=== PATIENT | male | born 1965 | race African-American/Black ===

== ENCOUNTER 2017-12-03 14:56 | Inpatient (IN) | payer OTHER ==
[2017-12-03 15:30] VITALS: BMI 29.2
--- NOTE | 2017-12-03 18:41 | HP ---
CIWA Score - CIWA Score Nausea/Vomitin-Mild Nausea/No Vomiting Muscle Tremors: 3 Anxiety: 3 Agitation: 3 Paroxysmal Sweats: 3 Orientation: 0-Oriented Tacttile Disturbances: 1-Very Mild Itch/Numbness Auditory Disturbances: 0-None Visual Disturbances: 0-None Headache: 1-Very Mild CIWA-Ar Total Score: 15 Admission ROS S - HPI Chief Complaint: "I want detox from alcohol" Allergies/Adverse Reactions: Allergies Allergy/AdvReac Type Severity Reaction Status Date / Time lamotrigine [From Lamictal] Allergy Severe Jones-Truong Verified 12/03/17 18: 02 syndrome sulfamethoxazole Allergy Severe Jones-Truong Verified 12/03/17 18:02 [From Bactrim] syndrome trimethoprim [From Bactrim] Allergy Severe Jones-Truong Verified 12/03/17 18: 02 syndrome History of Present Illness: 52 y/o male with a long hx of alcohol addiction presents today requesting detox. Pt had been in previous detox with his last visit here in 2015. Pt states he was kicked out of the suboxone program at [facility] 2 weeks ago.He said he hopes to go back after detox as had been using opiates since he got kicked out of the program. Hx of HTN, acid reflux and enlarged prostate. Psych hx of schizoaffective, depression. Denies SI at current time. Exam Limitations: No Limitations - Ebola screening Have you traveled outside of the country in the last 21 days: No (N) Have you had contact with anyone from an Ebola affected area: No Have you been sick,other than usual withdrawal symptoms: No Do you have a fever: No - Review of Systems Constitutional: Unintentional Wgt. Loss EENT: reports: Other (wears reading glasses, missing lower b/l inciscors, no dentures) Respiratory: reports: No Symptoms reported Cardiac: reports: No Symptoms Reported GI: reports: Diarrhea : reports: No Symptoms Reported Musculoskeletal: reports: Back Pain Integumentary: reports: No Symptoms Reported Neuro: reports: Headache, Tingling (to fingertips) Endocrine: reports: Increased Thirst Hematology: reports: Anemia Psychiatric: reports: Orientated x3 Other Systems: Reviewed and Negative Patient History - Patient Medical History Hx Anemia: Yes Hx Asthma: No Hx Chronic Obstructive Pulmonary Disease (COPD): No Hx Cancer: No Hx Cardiac Disorders: Yes (arrythmia) Hx Congestive Heart Failure: No Hx Hypertension: Yes (On Lisisnopril, HCTZ - not compliant) Hx Hypercholesterolemia: No Hx Pacemaker: No HX Cerebrovascular Accident: No Hx Seizures: No Hx Dementia: No Hx Diabetes: No Hx Gastrointestinal Disorders: Yes (acid reflux) Hx Liver Disease: No Hx Genitourinary Disorders: No Hx Sexually Transmitted Disorders: No Hx Renal Disease (ESRD): No Hx Thyroid Disease: No Hx Human Immunodeficiency Virus (HIV): No (negative) Hx Hepatitis C: No Hx Depression: Yes (On abilify) Hx Suicide Attempt: Yes (In 2002 pill overdose due to family ;denies any S/ H ideation) Hx Bipolar Disorder: No Hx Schizophrenia: Yes (diagnosed four years ago, [facility]) - Patient Surgical History Past Surgical History: No Hx Neurologic Surgery: No Hx Cataract Extraction: No Hx Cardiac Surgery: No Hx Lung Surgery: No Hx Breast Surgery: No Hx Breast Biopsy: No Hx Abdominal Surgery: No Hx Appendectomy: No Hx Cholecystectomy: No Hx Genitourinary Surgery: No Hx Section: No Hx Orthopedic Surgery: No Other Surgical History: Tx for leeanne rhoades in 2013, reactive allergy with sloching off of esop Anesthesia Reaction: No - PPD History Previous Implant?: Yes Documented Results: Negative w/proof Implanted On Prior R Admission?: Yes Date: 07/17/15 Results: 0 mm PPD to be Administered?: Yes - Reproductive History Patient is a Female of Child Bearing Age (11 -55 yrs old): No - Smoking Cessation Smoking history: Current every day smoker Have you smoked in the past 12 months: Yes Aproximately how many cigarettes per day: 5 Cigars Per Day: 0 Hx Chewing Tobacco Use: No Initiated information on smoking cessation: Yes 'Breaking Loose' booklet given: 12/03/17 - Substance & Tx. History Hx Alcohol Use: Yes Hx Substance Use: Yes (crack cocaine) Substance Use Type: Alcohol Hx Substance Use Treatment: Yes - Substances Abused Alcohol Route: Oral Frequency: Daily Amount used: Vodka 2 pints, Beer 3 of 16 oz Age of first use: 12 Date of Last Use: 12/03/17 Cocaine Route: Smoking Frequency: Daily Amount used: $25 (3 bags) Age of first use: 27 Date of Last Use: 12/03/17 Family Disease History - Family Disease History Family Disease History: Other: Father (alc. dep), Mother (HTN, alc dep), Brother (mental illness and substance) Admission Physical Exam [facility] - Vital Signs Vital Signs: Vital Signs - 24 hr 12/03/17 15:29 Temperature 98.3 F Pulse Rate 74 Respiratory 20 Rate Blood Pressure 144/81 - Physical General Appearance: Yes: Mild Distress, Anxious HEENTM: Yes: Within Normal Limits Respiratory: Yes: Chest Non-Tender, Lungs Clear, Normal Breath Sounds, No Respiratory Distress Neck: Yes: Within Normal Limits, Trachea in good position Breast: Yes: Breast Exam Deferred Cardiology: Yes: Regular Rate, S1, S2 Abdominal: Yes: Non Tender, Distended Genitourinary: Yes: Within Normal Limits Back: Yes: Normal Inspection Musculoskeletal: Yes: Within Normal Limits Extremities: Yes: Normal Capillary Refill Neurological: Yes: Fully Oriented, Motor Strength 5/5 Integumentary: Yes: Other (small raised bumps - clogged up oil glands) Lymphatic: Yes: Within Normal Limits - Diagnostic (1) Alcohol dependence with uncomplicated withdrawal Current Visit: No Status: Chronic (2) Nicotine dependence Current Visit: No Status: Chronic Qualifiers: Nicotine product type: cigarettes Substance use status: uncomplicated Qualified Code(s): F17.210 - Nicotine dependence, cigarettes, uncomplicated (3) BPH (benign prostatic hypertrophy) Current Visit: No Status: Chronic (4) GERD (gastroesophageal reflux disease) Current Visit: No Status: Chronic Qualifiers: Esophagitis presence: without esophagitis Qualified Code(s): K21.9 - Gastro -esophageal reflux disease without esophagitis (5) HTN (hypertension) Current Visit: No Status: Chronic Qualifiers: Hypertension type: essential hypertension Qualified Code(s): I10 - Essential (primary) hypertension (6) Schizoaffective disorder Current Visit: No Status: Acute (7) Cocaine dependence Current Visit: Yes Status: Acute Cleared for Admission S - Detox or Rehab [facility] Level of Care: Medically Managed Detox Regimen/Protocol: Librium [facility] Breath Alcohol Content Breath Alcohol Content: 0 Urine Drug Screen - Results Drug Screen Negative: No Urine Drug Screen Results: GENNA-Cocaine
[2017-12-03] MEDS ORDERED: MAGNESIUM HYDROX 2400MG/30ML ORAL SUSPENSION 30 ML CUP PO PRN (19:05)
[2017-12-03] MEDS ORDERED: MENTHOL/PHENOL 1 EACH UD MM PRN (19:05)
[2017-12-03] MEDS ORDERED: MAG HYDROX/AL HYDROX/SIMETH 30 ML UNIT-DOSE CUP PO PRN (19:05)
[2017-12-03] MEDS ORDERED: IBUPROFEN 400 MG TABLET (FP) PO PRN (19:05)
[2017-12-03] MEDS ORDERED: MAGNESIUM CITRATE 300 ML BOTTLE PO PRN (19:05)
[2017-12-03] MEDS ORDERED: NICOTINE POLACRILEX 2 MG GUM BC PRN (19:05)
[2017-12-03] MEDS ORDERED: P-EPHED 60MG/TRIPROLIDI 2.5MG TABLET PO PRN (19:05)
[2017-12-03] MEDS ORDERED: LOPERAMIDE HCL 2 MG CAPSULE PO PRN (19:05)
[2017-12-03] MEDS ORDERED: hydrOXYzine PAMOATE 50 MG CAPSULE (FP) PO PRN (19:05)
[2017-12-03] MEDS ORDERED: ACETAMINOPHEN 325 MG TABLET (FP) PO PRN (19:05)
[2017-12-03] MEDS ORDERED: guaiFENesin/D-METHORPHAN HB 10 ML UNIT-DOSE CUPS PO PRN (19:05)
[2017-12-03] MEDS ORDERED: chlordiazePOXIDE HCL 25 MG CAPSULE PO PRN (20:20)
[2017-12-03] MEDS: THIAMINE HCL 100 MG TABLET (FP) PO SCH (22:34)
[2017-12-03] MEDS: chlordiazePOXIDE HCL 25 MG CAPSULE PO SCH (22:34)
[2017-12-03] MEDS: MELATONIN 5 MG TABLETS PO PRN (22:34)
[2017-12-04 00:39] LABS: URINE APPEARANCE CLEAR; URINE BILIRUBIN NEGATIVE (<2.0 mg/dL); URINE BLOOD NEGATIVE (NEGATIVE); URINE COLOR YELLOW; URINE GLUCOSE (UA) NEGATIVE (NEGATIVE); URINE KETONE NEGATIVE (NEGATIVE); URINE LEUK ESTERASE NEGATIVE (NEGATIVE); URINE NITRITE NEGATIVE (NEGATIVE); URINE PROTEIN NEGATIVE (NEGATIVE); URINE UROBILINOGEN NEGATIVE mg/dL (0.2-1.0)
[2017-12-04] MEDS: chlordiazePOXIDE HCL 25 MG CAPSULE PO SCH ×4 (05:41→22:53)
--- NOTE | 2017-12-04 09:07 | EKG ---
Test Reason : Blood Pressure : / mmHG Vent. Rate : 064 BPM Atrial Rate : 064 BPM P-R Int : 154 ms QRS Dur : 098 ms QT Int : 464 ms P-R-T Axes : 030 -10 003 degrees QTc Int : 478 ms NORMAL SINUS RHYTHM MODERATE VOLTAGE CRITERIA FOR LVH, MAY BE NORMAL VARIANT NONSPECIFIC ST AND T WAVE ABNORMALITY PROLONGED QT ABNORMAL ECG WHEN COMPARED WITH ECG OF 28-FEB-2016 07:43, NON-SPECIFIC CHANGE IN ST SEGMENT IN ANTERIOR LEADS T WAVE INVERSION NO LONGER EVIDENT IN ANTERIOR LEADS Confirmed by SUZE CORNEJO MD ([id number]) on 12/04/2017 9:06:34 AM Referred By: Confirmed By:SUZE CORNEJO MD
[2017-12-04] MEDS ORDERED: MIRTAZAPINE 30 MG TABLET (FP) PO SCH (10:00)
--- NOTE | 2017-12-04 10:03 | CONSULT ---
[facility] Psychiatric Consult - Data Date of interview: 12/04/17 Admission source: [facility] Identifying data: This is 52 years old obese male with psychiatric hospitalization history, history of Sckozoaffective disorder, single father of six with history of dependence with Cocaine, Alcohol and Nicotine, is here for detox from above drugs. Substance Abuse History: Smoking history: Current every day smoker. Have you smoked in the past 12 months: Yes. Aproximately how many cigarettes per day: 5. Cigars Per Day: 0. Hx Chewing Tobacco Use: No. Initiated information on smoking cessation: Yes. 'Breaking Loose' booklet given: 12/03/17. - Substance & Tx. History. Hx Alcohol Use: Yes. Hx Substance Use: Yes (crack cocaine). Substance Use Type: Alcohol. Hx Substance Use Treatment: Yes. - Substances Abused. Alcohol. Route: Oral. Frequency: Daily. Amount used: Vodka 2 pints, Beer 3 of 16 oz. Age of first use: 12. Date of Last Use: 12/03/17. Cocaine. Route: Smoking. Frequency: Daily. Amount used: $25 (3 bags). Age of first use: 27. Date of Last Use: 12/03/17 Medical History: GERD, BPH, HTN Psychiatric History: Patient reeports history of Schizoaffective disorder with most recent psychiatric admission at [facility] on about 3 weeks ago fro safety, reports taking prior to adfmiossion: Abilify 5mgn poqd. Remeron 30mg pom qhs. Denies suicdial,homicadal history Physical/Sexual Abuse/Trauma History: Denies Additional Comment: Abilify 5mgn poqd. Remeron 30mg pom qhs Mental Status Exam - Mental Status Exam Alert and Oriented to: Person Cognitive Function: Fair Patient Appearance: Unkempt Mood: Expansive Affect: Flat Patient Behavior: Sedated Speech Pattern: Delayed Voice Loudness: Mildly Soft/Quiet Thought Disorder: Being Controlled Hallucinations: Denies Suicidal Ideation: Denies Homicidal Ideation: Denies Insight/Judgement: Fair Sleep: Difficulty falling asleep Muscle strength/Tone: Mild Hypotonicity Gait/Station: Shuffling Additional Comments: Abilify 5mgn poqd. Remeron 30mg pom qhs Psychiatric Findings - Problem List ([place] 1, 2,3) (1) Cocaine dependence Current Visit: Yes Status: Acute (2) Alcohol abuse counseling and surveillance Current Visit: No Status: Acute (3) Drug-induced mood disorder Current Visit: No Status: Acute (4) Schizoaffective disorder Current Visit: No Status: Acute (5) Alcohol dependence with uncomplicated withdrawal Current Visit: No Status: Chronic (6) Obesity Current Visit: No Status: Chronic Qualifiers: Obesity type: unspecified obesity type Qualified Code(s): E66.01 - Morbid ( severe) obesity due to excess calories - Initial Treatment Plan Initial Treatment Plan: Abilify 5mgn poqd. Remeron 30mg pom qhs
[2017-12-04] MEDS: PRENATAL VITAMINS W/ FOLIC ACID TABLET (FP) PO SCH (10:16)
[2017-12-04] MEDS: HYDROCHLOROTHIAZIDE 25 MG TABLET (FP) PO SCH (10:16)
[2017-12-04] MEDS: LISINOPRIL 10 MG TABLET (FP) PO SCH (10:16)
[2017-12-04 10:17] LABS: HEMOGLOBIN 12.9 GM/dL (11.7-16.9); MCH 26.8 pg (25.7-33.7); MEAN CELL VOLUME 81.2 fl (80-96); MEAN PLT VOLUME 8.7 fl (7.5-11.1); PLATELET COUNT 246 K/MM3 (134-434); RDW 14.2 % (11.9-15.9); WHITE BLOOD COUNT 4.2 K/mm3 (4.0-10.0)
[2017-12-04] MEDS: ARIPiprazole 5 MG TABLET (FP) PO SCH (10:17)
[2017-12-04 10:33] LABS: ALBUMIN 2.8 g/dl (3.4-5.0); ANION GAP 6 (8-16); BILIRUBIN,TOTAL 0.1 mg/dL (0.2-1.0); BLOOD UREA NITROGEN 13 mg/dL (7-18); CALCIUM 8.2 mg/dL (8.5-10.1); CHLORIDE 107 mmol/L (98-107); CO2 29 mmol/L (21-32); CREATININE 0.9 mg/dL (0.7-1.3); GLUCOSE,RANDOM 86 mg/dL (74-106); POTASSIUM 3.6 mmol/L (3.5-5.1); SGOT/AST 22 U/L (15-37); SGPT/ALT 18 U/L (12-78); SODIUM 142 mmol/L (136-145); TOT PROT 6.1 g/dl (6.4-8.2)
[2017-12-04 10:34] LABS: ALK PHOS 54 U/L (45-117)
--- NOTE | 2017-12-04 11:50 | PN ---
S CIWA - CIWA Score Nausea/Vomitin Muscle Tremors: 3 Anxiety: 3 Agitation: 3 Paroxysmal Sweats: 1-Minimal Palms Moist Orientation: 0-Oriented Tacttile Disturbances: 1-Very Mild Itch/Numbness Auditory Disturbances: 1-Very Mild Visual Disturbances: 0-None Headache: 2-Mild CIWA-Ar Total Score: 17 BHS Progress Note (SOAP) Subjective: ALERT,IRRITABLE,ANXIOUS,INTERRUPTED SLEEP,TREMOR,PAIN IN THE BODY Objective: 12/04/17 11:48 Vital Signs Temperature 97.7 F 12/04/17 09:49 Pulse Rate 64 12/04/17 09:49 Respiratory Rate 18 12/04/17 09:49 Blood Pressure 151/87 12/04/17 09:49 O2 Sat by Pulse Oximetry (%) EKG NSR,LVH NO CHEST PAIN,NO SOB,NO DIZZINESS Laboratory Last Values WBC 4.2 K/mm3 (4.0-10.0) D 12/04/17 07:00 RBC 4.80 M/mm3 (4.00-5.60) 12/04/17 07:00 Hgb 12.9 GM/dL (11.7-16.9) D 12/04/17 07:00 Hct 39.0 % (35.4-49) D 12/04/17 07:00 MCV 81.2 fl (80-96) 12/04/17 07:00 MCH 26.8 pg (25.7-33.7) D 12/04/17 07:00 MCHC 33.0 g/dl (32.0-35.9) 12/04/17 07:00 RDW 14.2 % (11.9-15.9) D 12/04/17 07:00 Plt Count 246 K/MM3 (134-434) 12/04/17 07:00 MPV 8.7 fl (7.5-11.1) 12/04/17 07:00 Sodium 142 mmol/L (136-145) 12/04/17 07:00 Potassium 3.6 mmol/L (3.5-5.1) 12/04/17 07:00 Chloride 107 mmol/L (98-107) 12/04/17 07:00 Carbon Dioxide 29 mmol/L (21-32) 12/04/17 07:00 Anion Gap 6 (8-16) L 12/04/17 07:00 BUN 13 mg/dL (7-18) 12/04/17 07:00 Creatinine 0.9 mg/dL (0.7-1.3) D 12/04/17 07:00 Creat Clearance w eGFR > 60 (>60) 12/04/17 07:00 Random Glucose 86 mg/dL (74-106) D 12/04/17 07:00 Calcium 8.2 mg/dL (8.5-10.1) L 12/04/17 07:00 Total Bilirubin 0.1 mg/dL (0.2-1.0) L D 12/04/17 07:00 AST 22 U/L (15-37) D 12/04/17 07:00 ALT 18 U/L (12-78) D 12/04/17 07:00 Alkaline Phosphatase 54 U/L (45-117) 12/04/17 07:00 Total Protein 6.1 g/dl (6.4-8.2) L 12/04/17 07:00 Albumin 2.8 g/dl (3.4-5.0) L 12/04/17 07:00 Urine Color Yellow 12/03/17 22:55 Urine Appearance Clear 12/03/17 22:55 Urine pH 5.0 (5.0-8.0) 12/03/17 22:55 Ur Specific [place] 1.027 (1.001-1.035) 12/03/17 22:55 Urine Protein Negative (NEGATIVE) 12/03/17 22:55 Urine Glucose (UA) Negative (NEGATIVE) 12/03/17 22:55 Urine Ketones Negative (NEGATIVE) 12/03/17 22:55 Urine Blood Negative (NEGATIVE) 12/03/17 22:55 Urine Nitrite Negative (NEGATIVE) 12/03/17 22:55 Urine Bilirubin Negative (<2.0 mg/dL) 12/03/17 22:55 Urine Urobilinogen Negative mg/dL (0.2-1.0) 12/03/17 22:55 Ur Leukocyte Esterase Negative (NEGATIVE) 12/03/17 22:55 12/04/17 11:50 RPR PENDING Assessment: 12/04/17 11:50 WITHDRAWAL SYMPTOM Plan: CONTINUE DETOX
[2017-12-04] MEDS: THIAMINE HCL 100 MG TABLET (FP) PO SCH (22:52)
[2017-12-04] MEDS: MIRTAZAPINE 30 MG TABLET (FP) PO SCH (22:52)
[2017-12-05] MEDS: chlordiazePOXIDE HCL 25 MG CAPSULE PO SCH ×3 (05:38→18:50)
[2017-12-05] MEDS: LISINOPRIL 10 MG TABLET (FP) PO SCH (10:48)
[2017-12-05] MEDS: HYDROCHLOROTHIAZIDE 25 MG TABLET (FP) PO SCH (10:48)
[2017-12-05] MEDS: ARIPiprazole 5 MG TABLET (FP) PO SCH (10:48)
[2017-12-05] MEDS: PRENATAL VITAMINS W/ FOLIC ACID TABLET (FP) PO SCH (10:48)
--- NOTE | 2017-12-05 11:51 | PN ---
S CIWA - CIWA Score Nausea/Vomitin Muscle Tremors: 3 Anxiety: 3 Agitation: 3 Paroxysmal Sweats: 2 Orientation: 0-Oriented Tacttile Disturbances: 1-Very Mild Itch/Numbness Auditory Disturbances: 1-Very Mild Visual Disturbances: 0-None Headache: 2-Mild CIWA-Ar Total Score: 18 S Progress Note (SOAP) Subjective: ALERT,IRRITABLE,ANXIOUS,INTERRUPTED SLEEP,TREMOR Objective: 12/05/17 11:48 Vital Signs Temperature 96.9 F L 12/05/17 10:00 Pulse Rate 63 12/05/17 10:00 Respiratory Rate 20 12/05/17 10:00 Blood Pressure 147/81 12/05/17 10:00 O2 Sat by Pulse Oximetry (%) 12/05/17 11:49 WITHDRAWAL SYMPTOM Laboratory Last Values WBC 4.2 K/mm3 (4.0-10.0) D 12/04/17 07:00 RBC 4.80 M/mm3 (4.00-5.60) 12/04/17 07:00 Hgb 12.9 GM/dL (11.7-16.9) D 12/04/17 07:00 Hct 39.0 % (35.4-49) D 12/04/17 07:00 MCV 81.2 fl (80-96) 12/04/17 07:00 MCH 26.8 pg (25.7-33.7) D 12/04/17 07:00 MCHC 33.0 g/dl (32.0-35.9) 12/04/17 07:00 RDW 14.2 % (11.9-15.9) D 12/04/17 07:00 Plt Count 246 K/MM3 (134-434) 12/04/17 07:00 MPV 8.7 fl (7.5-11.1) 12/04/17 07:00 Sodium 142 mmol/L (136-145) 12/04/17 07:00 Potassium 3.6 mmol/L (3.5-5.1) 12/04/17 07:00 Chloride 107 mmol/L (98-107) 12/04/17 07:00 Carbon Dioxide 29 mmol/L (21-32) 12/04/17 07:00 Anion Gap 6 (8-16) L 12/04/17 07:00 BUN 13 mg/dL (7-18) 12/04/17 07:00 Creatinine 0.9 mg/dL (0.7-1.3) D 12/04/17 07:00 Creat Clearance w eGFR > 60 (>60) 12/04/17 07:00 Random Glucose 86 mg/dL (74-106) D 12/04/17 07:00 Calcium 8.2 mg/dL (8.5-10.1) L 12/04/17 07:00 Total Bilirubin 0.1 mg/dL (0.2-1.0) L D 12/04/17 07:00 AST 22 U/L (15-37) D 12/04/17 07:00 ALT 18 U/L (12-78) D 12/04/17 07:00 Alkaline Phosphatase 54 U/L (45-117) 12/04/17 07:00 Total Protein 6.1 g/dl (6.4-8.2) L 12/04/17 07:00 Albumin 2.8 g/dl (3.4-5.0) L 12/04/17 07:00 Urine Color Yellow 12/03/17 22:55 Urine Appearance Clear 12/03/17 22:55 Urine pH 5.0 (5.0-8.0) 12/03/17 22:55 Ur Specific [place] 1.027 (1.001-1.035) 12/03/17 22:55 Urine Protein Negative (NEGATIVE) 12/03/17 22:55 Urine Glucose (UA) Negative (NEGATIVE) 12/03/17 22:55 Urine Ketones Negative (NEGATIVE) 12/03/17 22:55 Urine Blood Negative (NEGATIVE) 12/03/17 22:55 Urine Nitrite Negative (NEGATIVE) 12/03/17 22:55 Urine Bilirubin Negative (<2.0 mg/dL) 12/03/17 22:55 Urine Urobilinogen Negative mg/dL (0.2-1.0) 12/03/17 22:55 Ur Leukocyte Esterase Negative (NEGATIVE) 12/03/17 22:55 RPR Titer Nonreactive (NONREACTIVE) 12/04/17 07:00 Assessment: 12/05/17 11:50 WITHDRAWAL SYMPTOM Plan: CONTINUE DETOX
[2017-12-05] MEDS: MIRTAZAPINE 30 MG TABLET (FP) PO SCH (22:14)
[2017-12-05] MEDS: chlordiazePOXIDE 5 MG CAPSULE PO SCH (22:14)
[2017-12-05] MEDS: THIAMINE HCL 100 MG TABLET (FP) PO SCH (22:14)
[2017-12-05] MEDS: MELATONIN 5 MG TABLETS PO PRN (22:15)
[2017-12-06] MEDS: chlordiazePOXIDE 5 MG CAPSULE PO SCH ×3 (06:47→18:20)
[2017-12-06] MEDS: ARIPiprazole 5 MG TABLET (FP) PO SCH (10:22)
[2017-12-06] MEDS: PRENATAL VITAMINS W/ FOLIC ACID TABLET (FP) PO SCH (10:22)
[2017-12-06] MEDS: HYDROCHLOROTHIAZIDE 25 MG TABLET (FP) PO SCH (10:22)
[2017-12-06] MEDS: LISINOPRIL 10 MG TABLET (FP) PO SCH (10:23)
--- NOTE | 2017-12-06 11:15 | PN ---
S Progress Note (SOAP) Subjective: ALERT,IRRITABLE,ANXIOUS,INTERRUPTED SLEEP Objective: 12/06/17 11:14 Vital Signs Temperature 96.4 F L 12/06/17 10:00 Pulse Rate 77 12/06/17 10:00 Respiratory Rate 16 12/06/17 10:00 Blood Pressure 137/83 12/06/17 10:00 O2 Sat by Pulse Oximetry (%) Assessment: 12/06/17 11:14 WITHDRAWAL SYMPTOM Plan: CONTINUE DETOX,DISCHARGE IN AM
[2017-12-06] MEDS ORDERED: PANTOPRAZOLE 40 MG TABLET (FP) PO SCH (11:30)
[2017-12-06] MEDS: MIRTAZAPINE 30 MG TABLET (FP) PO SCH (22:21)
[2017-12-06] MEDS: THIAMINE HCL 100 MG TABLET (FP) PO SCH (22:21)
[2017-12-06] MEDS: chlordiazePOXIDE HCL 10 MG CAPSULE PO SCH (22:21)
[2017-12-07] MEDS: chlordiazePOXIDE HCL 10 MG CAPSULE PO SCH (06:07)
[2017-12-07 06:20] VITALS: BP 138/70; PULSE 61; TEMP 98.1
--- NOTE | 2017-12-07 10:10 | PN ---
S Progress Note (SOAP) Subjective: ALERT,NO COMPLAINT Objective: 12/07/17 10:05 Vital Signs Temperature 98.1 F 12/07/17 06:00 Pulse Rate 61 12/07/17 06:00 Respiratory Rate 18 12/07/17 06:00 Blood Pressure 138/70 12/07/17 06:00 O2 Sat by Pulse Oximetry (%) Assessment: 12/07/17 10:05 DETOX COMPLETED ,NO WITHDRAWAL SYMPTOM Plan: DISCHARGE TODAY,FOLLOW UP WITH AFTER CARE PROGRAM ARRANGEMENT
--- NOTE | 2017-12-07 10:15 | DS ---
[facility] Detox Discharge Summary Admission Date: 12/03/17 Discharge Date: 12/07/17 - History Present History: Alcohol Dependence, Cocaine Dependence Additional Comments: FOLLOW UP WITH AFTER CARE PROGRAM ARRANGEMENT Pertinent Past History: BPH GERD HYPERTENSION SCHIZO AFFECTIVE DISORDER - Physical Exam Results Vital Signs: Vital Signs Temperature 98.1 F 12/07/17 06:00 Pulse Rate 61 12/07/17 06:00 Respiratory Rate 18 12/07/17 06:00 Blood Pressure 138/70 12/07/17 06:00 O2 Sat by Pulse Oximetry (%) Pertinent Admission Physical Exam Findings: WITHDRAWAL SIGNS AND SYMPTOM Vital Signs Temperature 98.1 F 12/07/17 06:00 Pulse Rate 61 12/07/17 06:00 Respiratory Rate 18 12/07/17 06:00 Blood Pressure 138/70 12/07/17 06:00 O2 Sat by Pulse Oximetry (%) Laboratory Last Values WBC 4.2 K/mm3 (4.0-10.0) D 12/04/17 07:00 RBC 4.80 M/mm3 (4.00-5.60) 12/04/17 07:00 Hgb 12.9 GM/dL (11.7-16.9) D 12/04/17 07:00 Hct 39.0 % (35.4-49) D 12/04/17 07:00 MCV 81.2 fl (80-96) 12/04/17 07:00 MCH 26.8 pg (25.7-33.7) D 12/04/17 07:00 MCHC 33.0 g/dl (32.0-35.9) 12/04/17 07:00 RDW 14.2 % (11.9-15.9) D 12/04/17 07:00 Plt Count 246 K/MM3 (134-434) 12/04/17 07:00 MPV 8.7 fl (7.5-11.1) 12/04/17 07:00 Sodium 142 mmol/L (136-145) 12/04/17 07:00 Potassium 3.6 mmol/L (3.5-5.1) 12/04/17 07:00 Chloride 107 mmol/L (98-107) 12/04/17 07:00 Carbon Dioxide 29 mmol/L (21-32) 12/04/17 07:00 Anion Gap 6 (8-16) L 12/04/17 07:00 BUN 13 mg/dL (7-18) 12/04/17 07:00 Creatinine 0.9 mg/dL (0.7-1.3) D 12/04/17 07:00 Creat Clearance w eGFR > 60 (>60) 12/04/17 07:00 Random Glucose 86 mg/dL (74-106) D 12/04/17 07:00 Calcium 8.2 mg/dL (8.5-10.1) L 12/04/17 07:00 Total Bilirubin 0.1 mg/dL (0.2-1.0) L D 12/04/17 07:00 AST 22 U/L (15-37) D 12/04/17 07:00 ALT 18 U/L (12-78) D 12/04/17 07:00 Alkaline Phosphatase 54 U/L (45-117) 12/04/17 07:00 Total Protein 6.1 g/dl (6.4-8.2) L 12/04/17 07:00 Albumin 2.8 g/dl (3.4-5.0) L 12/04/17 07:00 Urine Color Yellow 12/03/17 22:55 Urine Appearance Clear 12/03/17 22:55 Urine pH 5.0 (5.0-8.0) 12/03/17 22:55 Ur Specific [place] 1.027 (1.001-1.035) 12/03/17 22:55 Urine Protein Negative (NEGATIVE) 12/03/17 22:55 Urine Glucose (UA) Negative (NEGATIVE) 12/03/17 22:55 Urine Ketones Negative (NEGATIVE) 12/03/17 22:55 Urine Blood Negative (NEGATIVE) 12/03/17 22:55 Urine Nitrite Negative (NEGATIVE) 12/03/17 22:55 Urine Bilirubin Negative (<2.0 mg/dL) 12/03/17 22:55 Urine Urobilinogen Negative mg/dL (0.2-1.0) 12/03/17 22:55 Ur Leukocyte Esterase Negative (NEGATIVE) 12/03/17 22:55 RPR Titer Nonreactive (NONREACTIVE) 12/04/17 07:00 - Treatment Hospital Course: Detox Protocol Followed, Detoxed Safely, Responded well, Discharged Condition Good Patient has Accepted a Rehab Referral to: DECLINED - Medication Discharge Medications: Ambulatory Orders Esomeprazole Mag Trihydrate [Nexium] 40 mg PO DAILY #30 capsule.ec 07/15/14 Aripiprazole [Abilify] 5 mg PO DAILY #30 tablet 12/04/17 Mirtazapine [Remeron -] 30 mg PO DAILY #30 tablet 12/04/17 Doxazosin Mesylate [Cardura -] 1 mg PO HS #30 tablet 12/06/17 Hydrochlorothiazide 25 mg PO DAILY #30 tablet 12/06/17 Lisinopril 10 mg PO DAILY #30 tablet 12/06/17 Pantoprazole Sodium [Protonix -] 40 mg PO DAILY #30 tablet.ec 12/06/17 - Diagnosis (1) Alcohol dependence with uncomplicated withdrawal Status: Chronic (2) Cocaine dependence Status: Acute (3) Schizoaffective disorder Status: Acute (4) BPH (benign prostatic hypertrophy) Status: Chronic (5) GERD (gastroesophageal reflux disease) Status: Chronic Qualifiers: Esophagitis presence: without esophagitis Qualified Code(s): K21.9 - Gastro -esophageal reflux disease without esophagitis (6) HTN (hypertension) Status: Chronic Qualifiers: Hypertension type: essential hypertension Qualified Code(s): I10 - Essential (primary) hypertension (7) Nicotine dependence Status: Chronic Qualifiers: Nicotine product type: cigarettes Substance use status: uncomplicated Qualified Code(s): F17.210 - Nicotine dependence, cigarettes, uncomplicated - AMA Did Patient Leave Against Medical Advice: No
== END 2017-12-07 09:25 | disposition home or self-care (01) | DRG 774 ==
LOC: YASAS 14:56 → Y6N 18:39
PROVIDERS: ADMIT Internal Medicine; ATTEND Internal Medicine
PROC: HZ2ZZZZ Detoxification Services for Substance Abuse Treatment (ICD-10-PCS; principal; 2017-12-03)
DX: F10.230 Alcohol dependence with withdrawal, uncomplicated (principal); F14.20 Cocaine dependence, uncomplicated; F17.210 Nicotine dependence, cigarettes, uncomplicated; F25.9 Schizoaffective disorder, unspecified; F19.24 Other psychoactive substance dependence with psychoactive substance-induced mood disorder; F32.9 Major depressive disorder, single episode, unspecified; E66.9 Obesity, unspecified; Z68.29 Body mass index [BMI] 29.0-29.9, adult; Z91.5 Personal history of self-harm
CPT/HCPCS: 36415; 80053; 81003; 85027; 86593; 93005; 93010

== ENCOUNTER 2017-12-31 11:09 | Inpatient (IN) | payer OTHER ==
[2017-12-31 13:15] VITALS: BMI 29.9
--- NOTE | 2017-12-31 15:46 | HP ---
COWS - Scale Resting Pulse: 0= [place] 80 or Below Sweatin= Chills/Flushing Restless Observation: 1= Difficult to Sit Still Pupil Size: 0= Normal to Room Light Bone or Joint Aches: 1= Mild Discomfort Runny Nose/ Eye Tearin= Nasal Congestion GI Upset > 30mins: 2= Nausea/Diarrhea Tremor Observation: 2= Slight Tremor Visible Yawning Observation: 1= 1-2x During Session Anxiety or Irritability: 2=Irritable/Anxious Goose Flesh Skin: 0=Smooth Skin COWS Score: 11 CIWA Score - CIWA Score Nausea/Vomitin-Mild Nausea/No Vomiting Muscle Tremors: 3 Anxiety: 3 Agitation: 3 Paroxysmal Sweats: 3 Orientation: 1-Uncertain about Date Tacttile Disturbances: 0-None Auditory Disturbances: 0-None Visual Disturbances: 0-None Headache: 0-None Present CIWA-Ar Total Score: 14 Admission ROS S - HPI Chief Complaint: "i want from detox" Allergies/Adverse Reactions: Allergies Allergy/AdvReac Type Severity Reaction Status Date / Time lamotrigine [From Lamictal] Allergy Severe Jones-Truong Verified 12/31/17 14: 37 syndrome sulfamethoxazole Allergy Severe Jones-Truong Verified 12/31/17 14:37 [From Bactrim] syndrome trimethoprim [From Bactrim] Allergy Severe Jones-Truong Verified 12/31/17 14: 37 syndrome History of Present Illness: 52 y/o male with a very long hx of drug use presents for detox from Heroin and alcohol. Pt was last here for detox last month and is known to this program. Endorses a 19 months sober period in 2014 s/p being in a nursing home program. Last used heroin and alcohol this morning. Was picked up from the [facility] here by [facility]. Hx of HTN/Acid reflux/Enlarged prostrate/depression and schizoaffective d/o. States he is complaint with his psych meds (abilify, Remeron) but not the medical meds. Denies current SI Exam Limitations: No Limitations - Ebola screening Have you traveled outside of the country in the last 21 days: No Have you had contact with anyone from an Ebola affected area: No Have you been sick,other than usual withdrawal symptoms: No Do you have a fever: No - Review of Systems Constitutional: No Symptoms Reported EENT: reports: Dental Problems (Missing teeth, does not wear dentures), Other ( Wears glasses for farsightedness) Respiratory: reports: No Symptoms reported Cardiac: reports: No Symptoms Reported GI: reports: Diarrhea, Nausea : reports: No Symptoms Reported Musculoskeletal: reports: Back Pain, Joint Pain (chronic elbow pain) Integumentary: reports: Other (clogged oil glands) Neuro: reports: No Symptoms reported Endocrine: reports: Other (sweating) Hematology: reports: Anemia Psychiatric: reports: Mood/Affect Appropiate, Orientated x3, Anxious Other Systems: Reviewed and Negative Patient History - Patient Medical History Hx Anemia: Yes (Not on meds) Hx Asthma: No Hx Chronic Obstructive Pulmonary Disease (COPD): No Hx Cancer: No Hx Cardiac Disorders: Yes (Arrythmia. denies any complaint @ this time.) Hx Congestive Heart Failure: No Hx Hypertension: Yes (On Lisinopril, HCTZ - not compliant) Hx Hypercholesterolemia: No Hx Pacemaker: No HX Cerebrovascular Accident: No Hx Seizures: No Hx Dementia: No Hx Diabetes: No Hx Gastrointestinal Disorders: Yes (acid reflux. On Nexium but not complaint) Hx Liver Disease: No Hx Genitourinary Disorders: No Hx Sexually Transmitted Disorders: No Hx Renal Disease (ESRD): No Hx Thyroid Disease: No Hx Human Immunodeficiency Virus (HIV): No (negative. Last tested in Oct) Hx Hepatitis C: No Hx Depression: Yes (On abilify) Hx Suicide Attempt: Yes (In 2002 pill overdose due to family ;denies current S/H ideation) Hx Bipolar Disorder: No Hx Schizophrenia: Yes (diagnosed four years ago, [facility]) - Patient Surgical History Past Surgical History: No Hx Neurologic Surgery: No Hx Cataract Extraction: No Hx Cardiac Surgery: No Hx Lung Surgery: No Hx Breast Surgery: No Hx Breast Biopsy: No Hx Abdominal Surgery: No Hx Appendectomy: No Hx Cholecystectomy: No Hx Genitourinary Surgery: No Hx Section: No Hx Orthopedic Surgery: No Other Surgical History: Tx for jones truong in 2012, reactive allergy with sloching off of esop Anesthesia Reaction: No - PPD History Previous Implant?: Yes Documented Results: Negative w/proof Implanted On Prior R Admission?: Yes Date: 12/05/17 Results: 0 mm PPD to be Administered?: No - Reproductive History Patient is a Female of Child Bearing Age (11 -55 yrs old): No - Smoking Cessation Smoking history: Current every day smoker Have you smoked in the past 12 months: Yes Aproximately how many cigarettes per day: 5 Cigars Per Day: 0 Hx Chewing Tobacco Use: No Initiated information on smoking cessation: Yes 'Breaking Loose' booklet given: 12/31/17 - Substances Abused Alcohol Route: Oral Frequency: Daily Amount used: liquor (Vodka)- 2 pints, beer - 2 cans of 16oz Age of first use: 12 Date of Last Use: 12/31/17 Heroin Route: Inhalation Frequency: Daily Amount used: 2 bags Age of first use: 14 Date of Last Use: 12/31/17 Family Disease History - Family Disease History Family Disease History: Other: Father (alc. dep; ), Mother (HTN, alc dep ; ), Brother (mental illness and substance) Admission Physical Exam [facility] - Vital Signs Vital Signs: Vital Signs - 24 hr 12/31/17 13:09 Temperature 97.1 F L Pulse Rate 80 Respiratory 20 Rate Blood Pressure 150/91 - Physical General Appearance: Yes: Mild Distress HEENTM: Yes: Other (wears glasses) Respiratory: Yes: Chest Non-Tender, Lungs Clear, Normal Breath Sounds, No Respiratory Distress Neck: Yes: No masses,lesions,Nodules, Trachea in good position Breast: Yes: Breast Exam Deferred Cardiology: Yes: Irregularly Irregular Abdominal: Yes: Normal Bowel Sounds, Non Tender, Distended Back: Yes: Within Normal Limits Musculoskeletal: Yes: full range of Motion, Gait Steady, Back pain Extremities: Yes: Normal Capillary Refill Neurological: Yes: Fully Oriented, Alert Integumentary: Yes: Other (Skin rough - Hx of Clogged-up oil glands) - Diagnostic (1) Alcohol dependence with uncomplicated withdrawal Current Visit: No Status: Chronic (2) Opioid dependence with uncomplicated intoxication Current Visit: Yes Status: Acute (3) Cannabis dependence Current Visit: Yes Status: Acute (4) Cocaine dependence Current Visit: No Status: Acute (5) Drug-induced mood disorder Current Visit: No Status: Acute (6) BPH (benign prostatic hypertrophy) Current Visit: No Status: Chronic (7) Chronic low back pain Current Visit: No Status: Chronic Qualifiers: Back pain laterality: unspecified Sciatica presence: without sciatica Qualified Code(s): M54.5 - Low back pain (8) GERD (gastroesophageal reflux disease) Current Visit: No Status: Chronic Qualifiers: Esophagitis presence: without esophagitis Qualified Code(s): K21.9 - Gastro -esophageal reflux disease without esophagitis (9) HTN (hypertension) Current Visit: No Status: Chronic Qualifiers: Hypertension type: essential hypertension Qualified Code(s): I10 - Essential (primary) hypertension (10) Nicotine dependence Current Visit: No Status: Chronic Qualifiers: Nicotine product type: cigarettes Substance use status: uncomplicated Qualified Code(s): F17.210 - Nicotine dependence, cigarettes, uncomplicated (11) Obesity Current Visit: No Status: Chronic Qualifiers: Obesity type: unspecified obesity type Qualified Code(s): E66.01 - Morbid ( severe) obesity due to excess calories Cleared for Admission [facility] - Detox or Rehab S Level of Care: Medically Managed Detox Regimen/Protocol: Methadone/Librium [facility] Breath Alcohol Content Breath Alcohol Content: 0 Urine Drug Screen - Results Drug Screen Negative: No Urine Drug Screen Results: THC-Marijuana, GENNA-Cocaine, OPI-Opiates, PCP- Phencyclidine
[2017-12-31] MEDS ORDERED: MENTHOL/PHENOL 1 EACH UD MM PRN (16:09)
[2017-12-31] MEDS ORDERED: MAGNESIUM CITRATE 300 ML BOTTLE PO PRN (16:09)
[2017-12-31] MEDS ORDERED: LOPERAMIDE HCL 2 MG CAPSULE PO PRN (16:09)
[2017-12-31] MEDS ORDERED: chlordiazePOXIDE HCL 25 MG CAPSULE PO PRN (16:09)
[2017-12-31] MEDS ORDERED: NICOTINE POLACRILEX 2 MG GUM BC PRN (16:09)
[2017-12-31] MEDS ORDERED: P-EPHED 60MG/TRIPROLIDI 2.5MG TABLET PO PRN (16:09)
[2017-12-31] MEDS ORDERED: IBUPROFEN 400 MG TABLET (FP) PO PRN (16:09)
[2017-12-31] MEDS ORDERED: guaiFENesin/D-METHORPHAN HB 10 ML UNIT-DOSE CUPS PO PRN (16:09)
[2017-12-31] MEDS ORDERED: MAGNESIUM HYDROX 2400MG/30ML ORAL SUSPENSION 30 ML CUP PO PRN (16:09)
[2017-12-31] MEDS ORDERED: MAG HYDROX/AL HYDROX/SIMETH 30 ML UNIT-DOSE CUP PO PRN (16:09)
[2017-12-31] MEDS ORDERED: ACETAMINOPHEN 325 MG TABLET (FP) PO PRN (16:09)
[2017-12-31] MEDS ORDERED: METHADONE HCL 10 MG TABLET (FOR DETOX USE ONLY) PO ONE ×3 (16:09→23:00)
[2017-12-31] MEDS: chlordiazePOXIDE HCL 25 MG CAPSULE PO SCH ×2 (18:53→22:51)
[2017-12-31] MEDS: LISINOPRIL 10 MG TABLET (FP) PO SCH (18:54)
[2017-12-31] MEDS: PANTOPRAZOLE 40 MG TABLET (FP) PO SCH (18:54)
[2017-12-31] MEDS: HYDROCHLOROTHIAZIDE 25 MG TABLET (FP) PO SCH (18:54)
[2017-12-31] MEDS ORDERED: MELATONIN 5 MG TABLETS PO PRN (22:00)
[2017-12-31] MEDS: THIAMINE HCL 100 MG TABLET (FP) PO SCH (22:52)
[2017-12-31 22:57] LABS: URINE APPEARANCE TURBID; URINE BILIRUBIN NEGATIVE (<2.0 mg/dL); URINE BLOOD NEGATIVE (NEGATIVE); URINE COLOR YELLOW; URINE GLUCOSE (UA) NEGATIVE (NEGATIVE); URINE KETONE NEGATIVE (NEGATIVE); URINE LEUK ESTERASE NEGATIVE (NEGATIVE); URINE NITRITE NEGATIVE (NEGATIVE); URINE PROTEIN NEGATIVE (NEGATIVE); URINE UROBILINOGEN NEGATIVE mg/dL (0.2-1.0)
[2018-01-01] MEDS: chlordiazePOXIDE HCL 25 MG CAPSULE PO SCH ×4 (05:49→23:11)
[2018-01-01] MEDS ORDERED: MIRTAZAPINE 30 MG TABLET (FP) PO SCH (10:00)
[2018-01-01] MEDS ORDERED: METHADONE HCL 10 MG TABLET (FOR DETOX USE ONLY) PO SCH (10:00)
[2018-01-01] MEDS: PRENATAL VITAMINS W/ FOLIC ACID TABLET (FP) PO SCH (10:14)
[2018-01-01] MEDS: HYDROCHLOROTHIAZIDE 25 MG TABLET (FP) PO SCH (10:15)
[2018-01-01] MEDS: ARIPiprazole 5 MG TABLET (FP) PO SCH (10:15)
[2018-01-01] MEDS: PANTOPRAZOLE 40 MG TABLET (FP) PO SCH (10:15)
[2018-01-01] MEDS: LISINOPRIL 10 MG TABLET (FP) PO SCH (10:15)
--- NOTE | 2018-01-01 10:21 | CONSULT ---
[facility] Psychiatric Consult - Data Date of interview: 01/01/18 Admission source: [facility] Identifying data: This is 52 years old male with history of Schizophrenia, single, lives alone, on PA, [place],with long history of Alcohol and Heroin abuse/dpendence, reports withdrawal symptoms due to abusing above drugs. Substance Abuse History: - Smoking Cessation. Smoking history: Current every day smoker. Have you smoked in the past 12 months: Yes. Aproximately how many cigarettes per day: 5. Cigars Per Day: 0. Hx Chewing Tobacco Use: No. Initiated information on smoking cessation: Yes. 'Breaking Loose' booklet given : 12/31/17. - Substances Abused. Alcohol. Route: Oral. Frequency: Daily. Amount used: liquor (Vodka)- 2 pints, beer - 2 cans of 16oz. Age of first use : 12. Date of Last Use: 12/31/17. Heroin. Route: Inhalation. Frequency: Daily. Amount used: 2 bags. Age of first use: 14. Date of Last Use: 12/31/17 Medical History: GERD, HTN, BPH, Psychiatric History: Patient reports history of Schizophrenia/Scixoaffective disorder, reports currently taking: Remeron 3omg po qhs. Abilify 5 mg poqd. Denies history of psychiatric hospitalizations Physical/Sexual Abuse/Trauma History: Denies Additional Comment: Remeron 3omg po qhs. Abilify 5 mg poqd Mental Status Exam - Mental Status Exam Alert and Oriented to: Place, Person Cognitive Function: Fair Patient Appearance: Unkempt Mood: Suspicious Affect: Constricted Patient Behavior: Cooperative Speech Pattern: Appropriate Voice Loudness: Normal Thought Process: Circumstantial Thought Disorder: Being Controlled Hallucinations: Denies Suicidal Ideation: Denies Homicidal Ideation: Denies Insight/Judgement: Fair Sleep: Difficulty falling asleep Appetite: Weight gain Muscle strength/Tone: Normal Gait/Station: Normal Additional Comments: Remeron 3omg po qhs. Abilify 5 mg poqd Psychiatric Findings - Problem List ([place] 1, 2,3) (1) Opioid dependence with uncomplicated intoxication Current Visit: Yes Status: Acute (2) Cannabis dependence Current Visit: Yes Status: Chronic (3) Alcohol abuse counseling and surveillance Current Visit: No Status: Acute (4) Alcohol dependence with uncomplicated withdrawal Current Visit: No Status: Acute (5) Heroin dependence Current Visit: No Status: Acute Comment: will modify detox starting with 15mg/d x 2d, 10mg/d x 2d, then 5mg -then d/c . (6) Schizoaffective disorder Current Visit: No Status: Acute (7) Drug-induced mood disorder Current Visit: No Status: Suspected - Initial Treatment Plan Initial Treatment Plan: Remeron 3omg po qhs. Abilify 5 mg poqd
[2018-01-01 10:45] LABS: HEMATOCRIT 40.5 % (35.4-49); HEMOGLOBIN 13.2 GM/dL (11.7-16.9); MCHC 32.6 g/dl (32.0-35.9); MEAN CELL VOLUME 79.9 fl (80-96); MEAN PLT VOLUME 8.8 fl (7.5-11.1); PLATELET COUNT 224 K/MM3 (134-434); RBC 5.07 M/mm3 (4.00-5.60); RDW 15.3 % (11.9-15.9)
[2018-01-01 10:48] LABS: ALBUMIN 3.1 g/dl (3.4-5.0); ANION GAP 5 (8-16); BLOOD UREA NITROGEN 16 mg/dL (7-18); CALCIUM 8.3 mg/dL (8.5-10.1); CHLORIDE 106 mmol/L (98-107); CO2 30 mmol/L (21-32); GLUCOSE,RANDOM 83 mg/dL (74-106); POTASSIUM 3.7 mmol/L (3.5-5.1); SODIUM 141 mmol/L (136-145)
[2018-01-01 10:51] LABS: ALK PHOS 68 U/L (45-117); BILIRUBIN,TOTAL 0.2 mg/dL (0.2-1.0); SGOT/AST 32 U/L (15-37); SGPT/ALT 25 U/L (12-78); TOT PROT 6.8 g/dl (6.4-8.2)
--- NOTE | 2018-01-01 11:00 | PN ---
S CIWA - CIWA Score Nausea/Vomitin Muscle Tremors: 3 Anxiety: 3 Agitation: 2 Paroxysmal Sweats: 1-Minimal Palms Moist Orientation: 0-Oriented Tacttile Disturbances: 1-Very Mild Itch/Numbness Auditory Disturbances: 1-Very Mild Visual Disturbances: 0-None Headache: 2-Mild CIWA-Ar Total Score: 16 [facility] COWS - Scale Resting Pulse: 1= [place] [id number] Sweatin= Chills/Flushing Restless Observation: 3= Extraneous Movement Pupil Size: 1= Pupils >than Normal Bone or Joint Aches: 2= Severe Diffuse Aches Runny Nose/ Eye Tearin= Runny Nose/Eyes GI Upset > 30mins: 2= Nausea/Diarrhea Tremor Observation of Outstretched Hands: 2= Slight Tremor Visible Yawning Observation: 1= 1-2x During Session Anxiety or Irritability: 2=Irritable/Anxious Goose Flesh Skin: 0=Smooth Skin COWS Score: 17 S Progress Note (SOAP) Subjective: ALERT,IRRITABLE,ANXIOUS,INTERRUPTED SLEEP,PAIN IN THE BODY AND BACK Objective: 01/01/18 10:56 Vital Signs Temperature 98.1 F 01/01/18 09:33 Pulse Rate 70 01/01/18 09:33 Respiratory Rate 20 01/01/18 09:33 Blood Pressure 125/86 01/01/18 09:33 O2 Sat by Pulse Oximetry (%) EKG NSR,PROL Laboratory Last Values WBC 5.0 K/mm3 (4.0-10.0) 01/01/18 07:00 RBC 5.07 M/mm3 (4.00-5.60) 01/01/18 07:00 Hgb 13.2 GM/dL (11.7-16.9) 01/01/18 07:00 Hct 40.5 % (35.4-49) 01/01/18 07:00 MCV 79.9 fl (80-96) L 01/01/18 07:00 MCH 26.0 pg (25.7-33.7) 01/01/18 07:00 MCHC 32.6 g/dl (32.0-35.9) 01/01/18 07:00 RDW 15.3 % (11.9-15.9) 01/01/18 07:00 Plt Count 224 K/MM3 (134-434) 01/01/18 07:00 MPV 8.8 fl (7.5-11.1) 01/01/18 07:00 Sodium 141 mmol/L (136-145) 01/01/18 07:00 Potassium 3.7 mmol/L (3.5-5.1) 01/01/18 07:00 Chloride 106 mmol/L (98-107) 01/01/18 07:00 Carbon Dioxide 30 mmol/L (21-32) 01/01/18 07:00 Anion Gap 5 (8-16) L 01/01/18 07:00 BUN 16 mg/dL (7-18) D 01/01/18 07:00 Creatinine 1.0 mg/dL (0.7-1.3) 01/01/18 07:00 Creat Clearance w eGFR > 60 (>60) 01/01/18 07:00 Random Glucose 83 mg/dL (74-106) 01/01/18 07:00 Calcium 8.3 mg/dL (8.5-10.1) L 01/01/18 07:00 Total Bilirubin 0.2 mg/dL (0.2-1.0) D 01/01/18 07:00 AST 32 U/L (15-37) D 01/01/18 07:00 ALT 25 U/L (12-78) D 01/01/18 07:00 Alkaline Phosphatase 68 U/L (45-117) D 01/01/18 07:00 Total Protein 6.8 g/dl (6.4-8.2) 01/01/18 07:00 Albumin 3.1 g/dl (3.4-5.0) L 01/01/18 07:00 Urine Color Yellow 12/31/17 20:00 Urine Appearance Turbid 12/31/17 20:00 Urine pH 5.0 (5.0-8.0) 12/31/17 20:00 Ur Specific [place] 1.027 (1.001-1.035) 12/31/17 20:00 Urine Protein Negative (NEGATIVE) 12/31/17 20:00 Urine Glucose (UA) Negative (NEGATIVE) 12/31/17 20:00 Urine Ketones Negative (NEGATIVE) 12/31/17 20:00 Urine Blood Negative (NEGATIVE) 12/31/17 20:00 Urine Nitrite Negative (NEGATIVE) 12/31/17 20:00 Urine Bilirubin Negative (<2.0 mg/dL) 12/31/17 20:00 Urine Urobilinogen Negative mg/dL (0.2-1.0) 12/31/17 20:00 Ur Leukocyte Esterase Negative (NEGATIVE) 12/31/17 20:00 EKG NSR PROLONG QT 420/456 NO CHEST PAIN,NI SOB,NO DIZZINESS 01/01/18 11:01 RPR PENDING Assessment: 01/01/18 11:01 WITHDRAWAL SYMPTOM Plan: CONTINUE DETOX
--- NOTE | 2018-01-01 11:09 | EKG ---
Test Reason : Blood Pressure : / mmHG Vent. Rate : 071 BPM Atrial Rate : 071 BPM P-R Int : 144 ms QRS Dur : 096 ms QT Int : 420 ms P-R-T Axes : 047 000 033 degrees QTc Int : 456 ms NORMAL SINUS RHYTHM NORMAL ECG WHEN COMPARED WITH ECG OF 03-DEC-2017 19:23, T WAVE VARIATION Confirmed by JONNIE KAHN MD ([id number]) on 01/01/2018 11:09:34 AM Referred By: Sly Stacy Confirmed By:JONNIE KAHN MD
[2018-01-01] MEDS: MIRTAZAPINE 30 MG TABLET (FP) PO SCH (23:12)
[2018-01-01] MEDS: THIAMINE HCL 100 MG TABLET (FP) PO SCH (23:12)
[2018-01-01] MEDS: DOXAZOSIN MESYLATE 1 MG TABLET PO SCH (23:17)
[2018-01-02] MEDS: chlordiazePOXIDE HCL 25 MG CAPSULE PO SCH ×2 (06:08→10:39)
[2018-01-02] MEDS ORDERED: cloNIDine HCL 0.1 MG TABLET PO ONE (06:12)
--- NOTE | 2018-01-02 06:14 | PN ---
S Progress Note Note: Patient's blood pressure was B/P 159/99. Clonidine 0.1mg tablet ordered.
[2018-01-02] MEDS ORDERED: HYDROCHLOROTHIAZIDE 25 MG TABLET (FP) PO SCH (10:00)
--- NOTE | 2018-01-02 10:09 | PN ---
[facility] CIWA - CIWA Score Nausea/Vomitin Muscle Tremors: 3 Anxiety: 3 Agitation: 2 Paroxysmal Sweats: 1-Minimal Palms Moist Orientation: 0-Oriented Tacttile Disturbances: 1-Very Mild Itch/Numbness Auditory Disturbances: 1-Very Mild Visual Disturbances: 0-None Headache: 2-Mild CIWA-Ar Total Score: 16 [facility] COWS - Scale Resting Pulse: 0= [place] 80 or Below Sweatin= Chills/Flushing Restless Observation: 3= Extraneous Movement Pupil Size: 1= Pupils >than Normal Bone or Joint Aches: 2= Severe Diffuse Aches Runny Nose/ Eye Tearin= Runny Nose/Eyes GI Upset > 30mins: 2= Nausea/Diarrhea Tremor Observation of Outstretched Hands: 2= Slight Tremor Visible Yawning Observation: 1= 1-2x During Session Anxiety or Irritability: 2=Irritable/Anxious Goose Flesh Skin: 0=Smooth Skin COWS Score: 16 [facility] Progress Note (SOAP) Subjective: ALERT,IRRITABLE,ANXIOUS,INTERRUPTED SLEEP,PAIN IN THE BODY AND BACK Objective: 01/02/18 10:07 Vital Signs Temperature 95.7 F L 01/02/18 06:42 Pulse Rate 72 01/02/18 06:42 Respiratory Rate 20 01/02/18 06:42 Blood Pressure 159/99 01/02/18 06:42 O2 Sat by Pulse Oximetry (%) Laboratory Last Values WBC 5.0 K/mm3 (4.0-10.0) 01/01/18 07:00 RBC 5.07 M/mm3 (4.00-5.60) 01/01/18 07:00 Hgb 13.2 GM/dL (11.7-16.9) 01/01/18 07:00 Hct 40.5 % (35.4-49) 01/01/18 07:00 MCV 79.9 fl (80-96) L 01/01/18 07:00 MCH 26.0 pg (25.7-33.7) 01/01/18 07:00 MCHC 32.6 g/dl (32.0-35.9) 01/01/18 07:00 RDW 15.3 % (11.9-15.9) 01/01/18 07:00 Plt Count 224 K/MM3 (134-434) 01/01/18 07:00 MPV 8.8 fl (7.5-11.1) 01/01/18 07:00 Sodium 141 mmol/L (136-145) 01/01/18 07:00 Potassium 3.7 mmol/L (3.5-5.1) 01/01/18 07:00 Chloride 106 mmol/L (98-107) 01/01/18 07:00 Carbon Dioxide 30 mmol/L (21-32) 01/01/18 07:00 Anion Gap 5 (8-16) L 01/01/18 07:00 BUN 16 mg/dL (7-18) D 01/01/18 07:00 Creatinine 1.0 mg/dL (0.7-1.3) 01/01/18 07:00 Creat Clearance w eGFR > 60 (>60) 01/01/18 07:00 Random Glucose 83 mg/dL (74-106) 01/01/18 07:00 Calcium 8.3 mg/dL (8.5-10.1) L 01/01/18 07:00 Total Bilirubin 0.2 mg/dL (0.2-1.0) D 01/01/18 07:00 AST 32 U/L (15-37) D 01/01/18 07:00 ALT 25 U/L (12-78) D 01/01/18 07:00 Alkaline Phosphatase 68 U/L (45-117) D 01/01/18 07:00 Total Protein 6.8 g/dl (6.4-8.2) 01/01/18 07:00 Albumin 3.1 g/dl (3.4-5.0) L 01/01/18 07:00 Urine Color Yellow 12/31/17 20:00 Urine Appearance Turbid 12/31/17 20:00 Urine pH 5.0 (5.0-8.0) 12/31/17 20:00 Ur Specific [place] 1.027 (1.001-1.035) 12/31/17 20:00 Urine Protein Negative (NEGATIVE) 12/31/17 20:00 Urine Glucose (UA) Negative (NEGATIVE) 12/31/17 20:00 Urine Ketones Negative (NEGATIVE) 12/31/17 20:00 Urine Blood Negative (NEGATIVE) 12/31/17 20:00 Urine Nitrite Negative (NEGATIVE) 12/31/17 20:00 Urine Bilirubin Negative (<2.0 mg/dL) 12/31/17 20:00 Urine Urobilinogen Negative mg/dL (0.2-1.0) 12/31/17 20:00 Ur Leukocyte Esterase Negative (NEGATIVE) 12/31/17 20:00 RPR Titer Nonreactive (NONREACTIVE) 01/01/18 07:00 Assessment: 01/02/18 10:08 WITHDRAWAL SYMPTOM Plan: CONTINUE DETOX
[2018-01-02] MEDS: PRENATAL VITAMINS W/ FOLIC ACID TABLET (FP) PO SCH (10:37)
[2018-01-02] MEDS: ARIPiprazole 5 MG TABLET (FP) PO SCH (10:38)
[2018-01-02] MEDS: LISINOPRIL 10 MG TABLET (FP) PO SCH (10:39)
[2018-01-02] MEDS: PANTOPRAZOLE 40 MG TABLET (FP) PO SCH (10:39)
[2018-01-02] MEDS: METHADONE HCL 5 MG TABLET (FOR DETOX USE ONLY) PO SCH (10:39)
[2018-01-02] MEDS: HYDROCHLOROTHIAZIDE 25 MG TABLET (FP) PO SCH (10:39)
[2018-01-02] MEDS: chlordiazePOXIDE 5 MG CAPSULE PO SCH ×2 (17:30→22:20)
[2018-01-02] MEDS: MIRTAZAPINE 30 MG TABLET (FP) PO SCH (22:20)
[2018-01-02] MEDS: THIAMINE HCL 100 MG TABLET (FP) PO SCH (22:20)
[2018-01-02] MEDS: DOXAZOSIN MESYLATE 1 MG TABLET PO SCH (22:20)
[2018-01-03] MEDS: chlordiazePOXIDE 5 MG CAPSULE PO SCH ×2 (05:55→10:21)
[2018-01-03] MEDS: PANTOPRAZOLE 40 MG TABLET (FP) PO SCH (10:19)
[2018-01-03] MEDS: PRENATAL VITAMINS W/ FOLIC ACID TABLET (FP) PO SCH (10:20)
[2018-01-03] MEDS: ARIPiprazole 5 MG TABLET (FP) PO SCH (10:20)
[2018-01-03] MEDS: METHADONE HCL 5 MG TABLET (FOR DETOX USE ONLY) PO SCH (10:20)
[2018-01-03] MEDS: HYDROCHLOROTHIAZIDE 25 MG TABLET (FP) PO SCH (10:20)
[2018-01-03] MEDS: LISINOPRIL 10 MG TABLET (FP) PO SCH (10:20)
--- NOTE | 2018-01-03 12:39 | PN ---
[facility] Progress Note (SOAP) Subjective: ALERT,IRRITABLE,ANXIOUS,INTERRUPTED SLEEP,PAIN IN THE BODY Objective: 01/03/18 12:38 Vital Signs Temperature 98.6 F 01/03/18 10:21 Pulse Rate 80 01/03/18 10:21 Respiratory Rate 18 01/03/18 10:21 Blood Pressure 147/98 01/03/18 10:21 O2 Sat by Pulse Oximetry (%) Assessment: 01/03/18 12:39 WITHDRAWAL SYMPTOM Plan: CONTINUE DETOX
[2018-01-03] MEDS: chlordiazePOXIDE HCL 10 MG CAPSULE PO SCH ×2 (18:03→22:17)
[2018-01-03] MEDS: THIAMINE HCL 100 MG TABLET (FP) PO SCH (22:17)
[2018-01-03] MEDS: MIRTAZAPINE 30 MG TABLET (FP) PO SCH (22:17)
[2018-01-03] MEDS: DOXAZOSIN MESYLATE 1 MG TABLET PO SCH (22:17)
[2018-01-04] MEDS: chlordiazePOXIDE HCL 10 MG CAPSULE PO SCH ×2 (05:37→10:58)
[2018-01-04] MEDS ORDERED: METHADONE HCL 10 MG TABLET (FOR DETOX USE ONLY) PO SCH (10:00)
[2018-01-04] MEDS: HYDROCHLOROTHIAZIDE 25 MG TABLET (FP) PO SCH (10:58)
[2018-01-04] MEDS: ARIPiprazole 5 MG TABLET (FP) PO SCH (10:58)
[2018-01-04] MEDS: PANTOPRAZOLE 40 MG TABLET (FP) PO SCH (10:58)
[2018-01-04] MEDS: PRENATAL VITAMINS W/ FOLIC ACID TABLET (FP) PO SCH (10:58)
[2018-01-04] MEDS: LISINOPRIL 10 MG TABLET (FP) PO SCH (10:58)
--- NOTE | 2018-01-04 11:19 | PN ---
S Progress Note (SOAP) Subjective: ALERT,IRRITABLE,ANXIOUS,INTERRUPTED SLEEP Objective: 01/04/18 11:19 Vital Signs Temperature 96.6 F L 01/04/18 10:06 Pulse Rate 73 01/04/18 10:06 Respiratory Rate 20 01/04/18 10:06 Blood Pressure 177/110 01/04/18 10:06 O2 Sat by Pulse Oximetry (%) Assessment: 01/04/18 11:19 WITHDRAWAL SYMPTOM Plan: CONTINUE DETOX,DISCHARGE IN AM
[2018-01-04] MEDS ORDERED: cloNIDine HCL 0.1 MG TABLET PO ONE (12:55)
[2018-01-04] MEDS: THIAMINE HCL 100 MG TABLET (FP) PO SCH (22:11)
[2018-01-04] MEDS: MIRTAZAPINE 30 MG TABLET (FP) PO SCH (22:11)
[2018-01-04] MEDS: DOXAZOSIN MESYLATE 1 MG TABLET PO SCH (22:11)
[2018-01-05] MEDS ORDERED: METHADONE HCL 5 MG TABLET (FOR DETOX USE ONLY) PO SCH (06:00)
--- NOTE | 2018-01-05 08:34 | PN ---
S Progress Note (SOAP) Subjective: ALERT,NO COMPLAINT Objective: 01/05/18 08:32 Vital Signs Temperature 97.7 F 01/05/18 06:00 Pulse Rate 70 01/05/18 06:00 Respiratory Rate 18 01/05/18 06:00 Blood Pressure 146/71 01/05/18 06:00 O2 Sat by Pulse Oximetry (%) Assessment: 01/05/18 08:32 DETOX COMPLETED,NO WITHDRAWAL SYMPTOM Plan: DISCHARGE TODAY,FOLLOW UP WITH AFTER CARE PROGRAM ARRANGEMENT
--- NOTE | 2018-01-05 08:38 | DS ---
[facility] Detox Discharge Summary Admission Date: 12/31/17 Discharge Date: 01/05/18 - History Present History: Alcohol Dependence, Cannabis Dependence, Cocaine Dependence, Opioid Dependence Additional Comments: FOLLOW UP WITH AFTER CARE PROGRAM ARRANGEMENT Pertinent Past History: BPH GERD CHRONIC LOW BACK PAIN HYPERTENSION NICOTINE DEPENDENCE SCHIZOAFFECTIVE DISORDER DRUG INDUCED MOOD DISORDER - Physical Exam Results Vital Signs: Vital Signs Temperature 97.7 F 01/05/18 06:00 Pulse Rate 70 01/05/18 06:00 Respiratory Rate 18 01/05/18 06:00 Blood Pressure 146/71 01/05/18 06:00 O2 Sat by Pulse Oximetry (%) Pertinent Admission Physical Exam Findings: WITHDRAWAL SIGNS AND SYMPTOM Vital Signs Temperature 97.7 F 01/05/18 06:00 Pulse Rate 70 01/05/18 06:00 Respiratory Rate 18 01/05/18 06:00 Blood Pressure 146/71 01/05/18 06:00 O2 Sat by Pulse Oximetry (%) Laboratory Last Values WBC 5.0 K/mm3 (4.0-10.0) 01/01/18 07:00 RBC 5.07 M/mm3 (4.00-5.60) 01/01/18 07:00 Hgb 13.2 GM/dL (11.7-16.9) 01/01/18 07:00 Hct 40.5 % (35.4-49) 01/01/18 07:00 MCV 79.9 fl (80-96) L 01/01/18 07:00 MCH 26.0 pg (25.7-33.7) 01/01/18 07:00 MCHC 32.6 g/dl (32.0-35.9) 01/01/18 07:00 RDW 15.3 % (11.9-15.9) 01/01/18 07:00 Plt Count 224 K/MM3 (134-434) 01/01/18 07:00 MPV 8.8 fl (7.5-11.1) 01/01/18 07:00 Sodium 141 mmol/L (136-145) 01/01/18 07:00 Potassium 3.7 mmol/L (3.5-5.1) 01/01/18 07:00 Chloride 106 mmol/L (98-107) 01/01/18 07:00 Carbon Dioxide 30 mmol/L (21-32) 01/01/18 07:00 Anion Gap 5 (8-16) L 01/01/18 07:00 BUN 16 mg/dL (7-18) D 01/01/18 07:00 Creatinine 1.0 mg/dL (0.7-1.3) 01/01/18 07:00 Creat Clearance w eGFR > 60 (>60) 01/01/18 07:00 Random Glucose 83 mg/dL (74-106) 01/01/18 07:00 Calcium 8.3 mg/dL (8.5-10.1) L 01/01/18 07:00 Total Bilirubin 0.2 mg/dL (0.2-1.0) D 01/01/18 07:00 AST 32 U/L (15-37) D 01/01/18 07:00 ALT 25 U/L (12-78) D 01/01/18 07:00 Alkaline Phosphatase 68 U/L (45-117) D 01/01/18 07:00 Total Protein 6.8 g/dl (6.4-8.2) 01/01/18 07:00 Albumin 3.1 g/dl (3.4-5.0) L 01/01/18 07:00 Urine Color Yellow 12/31/17 20:00 Urine Appearance Turbid 12/31/17 20:00 Urine pH 5.0 (5.0-8.0) 12/31/17 20:00 Ur Specific [place] 1.027 (1.001-1.035) 12/31/17 20:00 Urine Protein Negative (NEGATIVE) 12/31/17 20:00 Urine Glucose (UA) Negative (NEGATIVE) 12/31/17 20:00 Urine Ketones Negative (NEGATIVE) 12/31/17 20:00 Urine Blood Negative (NEGATIVE) 12/31/17 20:00 Urine Nitrite Negative (NEGATIVE) 12/31/17 20:00 Urine Bilirubin Negative (<2.0 mg/dL) 12/31/17 20:00 Urine Urobilinogen Negative mg/dL (0.2-1.0) 12/31/17 20:00 Ur Leukocyte Esterase Negative (NEGATIVE) 12/31/17 20:00 RPR Titer Nonreactive (NONREACTIVE) 01/01/18 07:00 - Treatment Hospital Course: Detox Protocol Followed, Detoxed Safely, Responded well, Discharged Condition Good Patient has Accepted a Rehab Referral to: DECLINED - Medication Discharge Medications: Ambulatory Orders Esomeprazole Mag Trihydrate [Nexium] 40 mg PO DAILY #30 capsule.ec 07/15/14 Mirtazapine [Remeron -] 30 mg PO DAILY #30 tablet 12/04/17 Doxazosin Mesylate [Cardura -] 1 mg PO HS #30 tablet 12/06/17 Hydrochlorothiazide 25 mg PO DAILY #30 tablet 12/06/17 Lisinopril 10 mg PO DAILY #30 tablet 12/06/17 Pantoprazole Sodium [Protonix -] 40 mg PO DAILY #30 tablet.ec 12/06/17 Aripiprazole [Abilify] 5 mg PO DAILY #30 tablet 01/01/18 Mirtazapine [Remeron -] 30 mg PO DAILY #30 tablet 01/01/18 - Diagnosis (1) Opioid dependence with withdrawal Current Visit: Yes Status: Acute (2) Cannabis dependence Current Visit: Yes Status: Chronic (3) Alcohol dependence with uncomplicated withdrawal Current Visit: No Status: Acute (4) Schizoaffective disorder Current Visit: No Status: Acute (5) BPH (benign prostatic hypertrophy) Current Visit: No Status: Chronic (6) GERD (gastroesophageal reflux disease) Current Visit: No Status: Chronic Qualifiers: Esophagitis presence: without esophagitis Qualified Code(s): K21.9 - Gastro -esophageal reflux disease without esophagitis (7) HTN (hypertension) Current Visit: No Status: Chronic Qualifiers: Hypertension type: essential hypertension Qualified Code(s): I10 - Essential (primary) hypertension (8) Nicotine dependence Current Visit: No Status: Chronic Qualifiers: Nicotine product type: cigarettes Substance use status: uncomplicated Qualified Code(s): F17.210 - Nicotine dependence, cigarettes, uncomplicated (9) Drug-induced mood disorder Current Visit: No Status: Suspected - AMA Did Patient Leave Against Medical Advice: No
--- NOTE | 2018-01-05 08:42 | PN ---
[facility] Progress Note Note: PATIENT STATED HAS HIS MEDICATIONS AT HOME
[2018-01-05] MEDS: HYDROCHLOROTHIAZIDE 25 MG TABLET (FP) PO SCH (09:46)
[2018-01-05] MEDS: ARIPiprazole 5 MG TABLET (FP) PO SCH (09:46)
[2018-01-05] MEDS: PRENATAL VITAMINS W/ FOLIC ACID TABLET (FP) PO SCH (09:46)
[2018-01-05] MEDS: PANTOPRAZOLE 40 MG TABLET (FP) PO SCH (09:46)
[2018-01-05] MEDS: LISINOPRIL 10 MG TABLET (FP) PO SCH (09:46)
[2018-01-05 10:29] VITALS: BP 153/70; PULSE 80; TEMP 97.9
== END 2018-01-05 01:05 | disposition home or self-care (01) | DRG 773 ==
LOC: YASAS 11:09 → Y6N 14:48
PROVIDERS: ADMIT Internal Medicine; ATTEND Internal Medicine
PROC: HZ2ZZZZ Detoxification Services for Substance Abuse Treatment (ICD-10-PCS; principal; 2017-12-31)
DX: F11.23 Opioid dependence with withdrawal (principal); F10.230 Alcohol dependence with withdrawal, uncomplicated; F12.20 Cannabis dependence, uncomplicated; F17.210 Nicotine dependence, cigarettes, uncomplicated; F25.9 Schizoaffective disorder, unspecified; F19.24 Other psychoactive substance dependence with psychoactive substance-induced mood disorder; I10 Essential (primary) hypertension; K21.9 Gastro-esophageal reflux disease without esophagitis; N40.0 Benign prostatic hyperplasia without lower urinary tract symptoms; M54.5 Low back pain; G89.29 Other chronic pain; Z91.5 Personal history of self-harm; Z71.41 Alcohol abuse counseling and surveillance of alcoholic
CPT/HCPCS: 36415; 80053; 81003; 85027; 86593; 93005; 93010; J0735

== ENCOUNTER 2018-08-10 12:52 | Inpatient (IN) | payer OTHER ==
[2018-08-10 13:22] VITALS: BMI 30.2
--- NOTE | 2018-08-10 13:39 | HP ---
COWS - Scale Resting Pulse: 0= HI 80 or Below Sweatin= Chills/Flushing Restless Observation: 0= Sits Still Pupil Size: 0= Normal to Room Light Bone or Joint Aches: 2= Severe Diffuse Aches Runny Nose/ Eye Tearin= Runny Nose/Eyes GI Upset > 30mins: 1= Stomach Cramp Tremor Observation: 0= None Yawning Observation: 0= None Anxiety or Irritability: 2=Irritable/Anxious Goose Flesh Skin: 0=Smooth Skin COWS Score: 8 CIWA Score Nausea/Vomitin-No Nausea/No Vomiting Muscle Tremors: None Anxiety: 3 Agitation: 0-Normal Activity Paroxysmal Sweats: 2 Orientation: 0-Oriented Tacttile Disturbances: 0-None Auditory Disturbances: 0-None Visual Disturbances: 2-Mild Sensitivity Headache: 0-None Present CIWA-Ar Total Score: 7 - Admission Criteria OASAS Guidelines: Admission for Medically Managed Detox: Requires at least one of the followin. CIWA greater than 12 2. Seizures within the past 24 hours 3. Delirium tremens within the past 24 hours 4. Hallucinations within the past 24 hours 5. Acute intervention needed for co occurring medical disorder 6. Acute intervention needed for co occurring psychiatric disorder 7. Severe withdrawal that cannot be handled at a lower level of care (continued vomiting, continued diarrhea, abnormal vital signs) requiring intravenous medication and/or fluids 8. 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 DOES NOT DRIVE . STARTED ETOH USE AT AGE 12 , PROGRESSIVELY INCREASING AMOUNT SINCE 8 MO AGO . HEROIN USE : 2 BAGS/DAY DENIES IVDU , REPORTS USE SINCE AGE OF 17 , INTERMITTENT SOBRIETY , LONGEST 19 MO INPATIENT DETOX/ REHAB , LATEST USE YESTERDAY 9 P.M. , CURRENT SYMPTOMS ABOVE. COCAINE : 2 BAGS /DAY SINCE AGE 27 , LATEST USE 2 DAYS AGO TOBACCO USE : 1/ PPD , REQUESTING NRT W/ GUM PMHX : HTN PSHX : DENIES PSYCH : DEPRESSION, sad , ON ABILIFY , REMERON LATEST TAKEN 1 WEEK AGO STOPPED GOING ( [facility] ) LIVES ALONE , FINANCES HABIT THROUGH PUBLIC ASSISTANCE , UNEMPLOYED Exam Limitations: No Limitations - Ebola screening Have you traveled outside of the country in the last 21 days: No Have you had contact with anyone from an Ebola affected area: No Have you been sick,other than usual withdrawal symptoms: No Do you have a fever: No - Review of Systems Constitutional: See HPI EENT: reports: Other (BIFOCALS) Respiratory: reports: No Symptoms reported Cardiac: reports: No Symptoms Reported GI: reports: See HPI : reports: No Symptoms Reported Musculoskeletal: reports: No Symptoms Reported Integumentary: reports: Bruising, Other (ABRASION FOREHEAD S/P FALL 1 WEEK AGO) Neuro: reports: No Symptoms reported Psychiatric: reports: Orientated x3, Anxious Patient History - Patient Medical History Hx Anemia: Yes (Not on meds) Hx Asthma: No Hx Chronic Obstructive Pulmonary Disease (COPD): No Hx Cancer: No Hx Cardiac Disorders: Yes (Arrythmia. denies any complaint @ this time.) Hx Congestive Heart Failure: No Hx Hypertension: Yes (On Lisinopril, HCTZ - not compliant) Hx Hypercholesterolemia: No Hx Pacemaker: No HX Cerebrovascular Accident: No Hx Seizures: No Hx Dementia: No Hx Diabetes: No Hx Gastrointestinal Disorders: Yes (acid reflux. On Nexium but not complaint) Hx Liver Disease: No Hx Genitourinary Disorders: No Hx Sexually Transmitted Disorders: No Hx Renal Disease (ESRD): No Hx Thyroid Disease: No Hx Human Immunodeficiency Virus (HIV): No (negative. Last tested in Oct) Hx Hepatitis C: No Hx Depression: Yes (On abilify) Hx Suicide Attempt: Yes (In 2002 pill overdose due to family ;denies current S/H ideation) Hx Bipolar Disorder: No Hx Schizophrenia: Yes (diagnosed four years ago, Remeron) - Patient Surgical History Past Surgical History: No Hx Neurologic Surgery: No Hx Cataract Extraction: No Hx Cardiac Surgery: No Hx Lung Surgery: No Hx Breast Surgery: No Hx Breast Biopsy: No Hx Abdominal Surgery: No Hx Appendectomy: No Hx Cholecystectomy: No Hx Genitourinary Surgery: No Hx Section: No Hx Orthopedic Surgery: No Other Surgical History: Tx for leeanne rhoades in 2013, reactive allergy with sloching off of esop Anesthesia Reaction: No - PPD History Date: 12/05/17 Results: 0 mm - Smoking Cessation Smoking history: Current every day smoker Have you smoked in the past 12 months: Yes Aproximately how many cigarettes per day: 5 Cigars Per Day: 0 Hx Chewing Tobacco Use: No Initiated information on smoking cessation: No - Substances Abused Heroin Route: Inhalation Frequency: Daily Amount used: 2 bags Age of first use: 17 Date of Last Use: 08/09/18 Crack Route: Smoking Frequency: 1-2 times per week Amount used: $20 Age of first use: 27 Date of Last Use: 08/08/18 Alcohol-vodka Route: Oral Frequency: Daily Amount used: 1 pt. Age of first use: 12 Date of Last Use: 08/09/18 Family Disease History - Family Disease History Family Disease History: Other: Father (alc. dep; ), Mother (HTN, alc dep ; ), Brother (mental illness and substance) Admission Physical Exam BHS - Vital Signs Vital Signs: Vital Signs - 24 hr 08/10/18 13:20 Temperature 97.5 F L Pulse Rate 66 Respiratory 18 Rate Blood Pressure 177/96 H - Physical General Appearance: Yes: Disheveled, Mild Distress HEENTM: Yes: EOMI, Normal ENT Inspection, Normocephalic, Pharynx Normal Respiratory: Yes: Chest Non-Tender, Lungs Clear, Normal Breath Sounds Neck: Yes: No masses,lesions,Nodules, Trachea in good position Breast: Yes: Breast Exam Deferred Cardiology: Yes: Regular Rhythm, Regular Rate, S1, S2 Abdominal: Yes: Normal Bowel Sounds, Soft Back: Yes: Normal Inspection Musculoskeletal: Yes: Gait Steady Extremities: Yes: Normal Capillary Refill, Normal Range of Motion, Non-Tender Neurological: Yes: Motor Strength 5/5, Normal Mood/Affect Integumentary: Yes: Other (HEALING ABRASION FOREHEAD) - Diagnostic (1) Alcohol dependence with uncomplicated withdrawal Current Visit: No Status: Acute (2) Opioid dependence with withdrawal Current Visit: No Status: Acute (3) HTN (hypertension) Current Visit: No Status: Chronic Qualifiers: Hypertension type: essential hypertension Qualified Code(s): I10 - Essential (primary) hypertension (4) Nicotine dependence Current Visit: No Status: Chronic Qualifiers: Nicotine product type: cigarettes Substance use status: uncomplicated Qualified Code(s): F17.210 - Nicotine dependence, cigarettes, uncomplicated BHS Breath Alcohol Content Breath Alcohol Content: 0 Urine Drug Screen - Results Drug Screen Negative: No Urine Drug Screen Results: GENNA-Cocaine, OPI-Opiates, AMP-Amphetamines
[2018-08-10] MEDS ORDERED: IBUPROFEN 400 MG TABLET (FP) PO PRN (13:48)
[2018-08-10] MEDS ORDERED: P-EPHED 60MG/TRIPROLIDI 2.5MG TABLET PO PRN (13:48)
[2018-08-10] MEDS ORDERED: NICOTINE POLACRILEX 2 MG GUM BC PRN (13:48)
[2018-08-10] MEDS ORDERED: ACETAMINOPHEN 325 MG TABLET (FP) PO PRN (13:48)
[2018-08-10] MEDS ORDERED: MAGNESIUM CITRATE 300 ML BOTTLE PO PRN (13:48)
[2018-08-10] MEDS ORDERED: MENTHOL/PHENOL 1 EACH UD MM PRN (13:48)
[2018-08-10] MEDS ORDERED: MAG HYDROX/AL HYDROX/SIMETH 30 ML UNIT-DOSE CUP PO PRN (13:48)
[2018-08-10] MEDS ORDERED: chlordiazePOXIDE HCL 25 MG CAPSULE PO PRN (13:48)
[2018-08-10] MEDS ORDERED: MAGNESIUM HYDROX 2400MG/30ML ORAL SUSPENSION 30 ML CUP PO PRN (13:48)
[2018-08-10] MEDS ORDERED: guaiFENesin/D-METHORPHAN HB 10 ML UNIT-DOSE CUPS PO PRN (13:48)
[2018-08-10] MEDS ORDERED: METHADONE HCL 10 MG TABLET (FOR DETOX USE ONLY) PO ONE ×2 (15:30→23:00)
[2018-08-10] MEDS: chlordiazePOXIDE HCL 25 MG CAPSULE PO SCH ×2 (18:04→22:25)
[2018-08-10] MEDS ORDERED: MELATONIN 5 MG TABLETS PO PRN (22:00)
[2018-08-10] MEDS: THIAMINE HCL 100 MG TABLET (FP) PO SCH (22:23)
[2018-08-10] MEDS: cloNIDine HCL 0.1 MG TABLET PO PRN (22:25)
[2018-08-10 23:24] LABS: URINE APPEARANCE CLOUDY; URINE BILIRUBIN NEGATIVE (<2.0 mg/dL); URINE COLOR LTYELLOW; URINE GLUCOSE (UA) NEGATIVE (NEGATIVE); URINE KETONE NEGATIVE (NEGATIVE); URINE LEUK ESTERASE NEGATIVE (NEGATIVE); URINE NITRITE NEGATIVE (NEGATIVE); URINE PROTEIN NEGATIVE (NEGATIVE); URINE UROBILINOGEN NEGATIVE mg/dL (0.2-1.0)
[2018-08-11] MEDS: chlordiazePOXIDE HCL 25 MG CAPSULE PO SCH ×4 (05:47→22:38)
[2018-08-11] MEDS ORDERED: METHADONE HCL 10 MG TABLET (FOR DETOX USE ONLY) PO SCH (10:00)
[2018-08-11] MEDS ORDERED: METHADONE HCL 5 MG TABLET (FOR DETOX USE ONLY) PO SCH (10:00)
[2018-08-11] MEDS: PRENATAL VITAMINS W/ FOLIC ACID TABLET (FP) PO SCH (10:26)
[2018-08-11 10:48] LABS: HEMATOCRIT 38.8 % (35.4-49); HEMOGLOBIN 12.3 GM/dL (11.7-16.9); MCHC 31.8 g/dl (32.0-35.9); MEAN CELL VOLUME 81.7 fl (80-96); MEAN PLT VOLUME 9.3 fl (7.5-11.1); PLATELET COUNT 250 K/MM3 (134-434); RBC 4.75 M/mm3 (4.00-5.60); RDW 14.5 % (11.9-15.9); WHITE BLOOD COUNT 4.6 K/mm3 (4.0-10.0)
[2018-08-11 10:57] LABS: ALBUMIN 3.1 g/dl (3.4-5.0); ALK PHOS 61 U/L (45-117); ANION GAP 8 MMOL/L (8-16); BILIRUBIN,TOTAL 0.2 mg/dL (0.2-1); BLOOD UREA NITROGEN 11 mg/dL (7-18); CALCIUM 8.3 mg/dL (8.5-10.1); CHLORIDE 104 mmol/L (98-107); CO2 27 mmol/L (21-32); GLUCOSE,RANDOM 103 mg/dL (74-106); POTASSIUM 3.4 mmol/L (3.5-5.1); SGOT/AST 19 U/L (15-37); SGPT/ALT 18 U/L (13-61); SODIUM 140 mmol/L (136-145); TOT PROT 6.9 g/dl (6.4-8.2)
--- NOTE | 2018-08-11 12:59 | PN ---
[facility] CIWA - CIWA Score Nausea/Vomitin-Mild Nausea/No Vomiting Muscle Tremors: 3 Anxiety: 1-Mildly Anxious Agitation: 1-Slight > Activity Paroxysmal Sweats: No Perspiration Orientation: 0-Oriented Tacttile Disturbances: 0-None Auditory Disturbances: 0-None Visual Disturbances: 0-None Headache: 0-None Present CIWA-Ar Total Score: 6 [facility] COWS - Scale Resting Pulse: 0= [place] 80 or Below Sweatin= Chills/Flushing Restless Observation: 1= Difficult to Sit Still Pupil Size: 0= Normal to Room Light Bone or Joint Aches: 0= None Runny Nose/ Eye Tearin= None GI Upset > 30mins: 2= Nausea/Diarrhea (No diarrhea.) Tremor Observation of Outstretched Hands: 2= Slight Tremor Visible Yawning Observation: 0= None Anxiety or Irritability: 1=Feels Anxious/Irritable Goose Flesh Skin: 0=Smooth Skin COWS Score: 7 [facility] Progress Note (SOAP) Subjective: States nausea. Denies vomiting/diarrhea. Denies abdominal pain. C/o sweats, chills, and shakes. States still feels anxious. Objective: A&O x 3. Distended abdomen. Add non-tender w/ (+) BS. Mild tremors of hands. (+ ) nasal congestion. Pacing floor. Vital Signs 08/11/18 08/11/18 06:00 10:36 Temperature 98.1 F 97.9 F Pulse Rate 54 L 67 Respiratory 18 20 Rate Blood Pressure 144/88 159/73 Laboratory Last Values WBC 4.6 K/mm3 (4.0-10.0) 08/11/18 07:50 RBC 4.75 M/mm3 (4.00-5.60) 08/11/18 07:50 Hgb 12.3 GM/dL (11.7-16.9) 08/11/18 07:50 Hct 38.8 % (35.4-49) 08/11/18 07:50 MCV 81.7 fl (80-96) 08/11/18 07:50 MCH 26.0 pg (25.7-33.7) 08/11/18 07:50 MCHC 31.8 g/dl (32.0-35.9) L 08/11/18 07:50 RDW 14.5 % (11.9-15.9) 08/11/18 07:50 Plt Count 250 K/MM3 (134-434) 08/11/18 07:50 MPV 9.3 fl (7.5-11.1) 08/11/18 07:50 Sodium 140 mmol/L (136-145) 08/11/18 07:50 Potassium 3.4 mmol/L (3.5-5.1) L 08/11/18 07:50 Chloride 104 mmol/L (98-107) 08/11/18 07:50 Carbon Dioxide 27 mmol/L (21-32) 08/11/18 07:50 Anion Gap 8 MMOL/L (8-16) 08/11/18 07:50 BUN 11 mg/dL (7-18) 08/11/18 07:50 Creatinine 1.0 mg/dL (0.55-1.3) 08/11/18 07:50 Creat Clearance w eGFR > 60 (>60) 08/11/18 07:50 Random Glucose 103 mg/dL (74-106) 08/11/18 07:50 Calcium 8.3 mg/dL (8.5-10.1) L 08/11/18 07:50 Total Bilirubin 0.2 mg/dL (0.2-1) 08/11/18 07:50 AST 19 U/L (15-37) 08/11/18 07:50 ALT 18 U/L (13-61) 08/11/18 07:50 Alkaline Phosphatase 61 U/L (45-117) 08/11/18 07:50 Total Protein 6.9 g/dl (6.4-8.2) 08/11/18 07:50 Albumin 3.1 g/dl (3.4-5.0) L 08/11/18 07:50 Urine Color Ltyellow 08/10/18 23:00 Urine Appearance Cloudy 08/10/18 23:00 Urine pH 7.0 (5.0-8.0) D 08/10/18 23:00 Ur Specific [place] 1.012 (1.010-1.035) 08/10/18 23:00 Urine Protein Negative (NEGATIVE) 08/10/18 23:00 Urine Glucose (UA) Negative (NEGATIVE) 08/10/18 23:00 Urine Ketones Negative (NEGATIVE) 08/10/18 23:00 Urine Blood Negative (NEGATIVE) 08/10/18 23:00 Urine Nitrite Negative (NEGATIVE) 08/10/18 23:00 Urine Bilirubin Negative (<2.0 mg/dL) 08/10/18 23:00 Urine Urobilinogen Negative mg/dL (0.2-1.0) 08/10/18 23:00 Ur Leukocyte Esterase Negative (NEGATIVE) 08/10/18 23:00 Labs reviewed. Assessment: Withdrawal symptoms. Plan: Continue detox.
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
--- NOTE | 2018-08-11 17:33 | EKG ---
Test Reason : Blood Pressure : / mmHG Vent. Rate : 072 BPM Atrial Rate : 072 BPM P-R Int : 144 ms QRS Dur : 098 ms QT Int : 406 ms P-R-T Axes : 047 -04 004 degrees QTc Int : 444 ms NORMAL SINUS RHYTHM VOLTAGE CRITERIA FOR LEFT VENTRICULAR HYPERTROPHY NONSPECIFIC ST ABNORMALITY ABNORMAL ECG WHEN COMPARED WITH ECG OF 31-DEC-2017 18:56, NONSPECIFIC T WAVE ABNORMALITY NOW EVIDENT IN INFERIOR LEADS Confirmed by MD JOEL, INEZ ([id number]) on 08/11/2018 5:32:47 PM Referred By: Confirmed By:INEZ MALDONADO MD
[2018-08-11] MEDS ORDERED: cloNIDine HCL 0.1 MG TABLET PO ONE (20:04)
[2018-08-11] MEDS ORDERED: MIRTAZAPINE 15 MG TABLET (FP) PO SCH (22:00)
[2018-08-11] MEDS: THIAMINE HCL 100 MG TABLET (FP) PO SCH (22:38)
[2018-08-12] MEDS: cloNIDine HCL 0.1 MG TABLET PO PRN (05:31)
[2018-08-12] MEDS: chlordiazePOXIDE HCL 25 MG CAPSULE PO SCH ×2 (05:31→10:32)
[2018-08-12] MEDS ORDERED: METHADONE HCL 5 MG TABLET (FOR DETOX USE ONLY) PO SCH (10:00)
[2018-08-12] MEDS ORDERED: amLODIPine BESYLATE 10 MG TABLET (FP) PO SCH (10:00)
[2018-08-12] MEDS: PRENATAL VITAMINS W/ FOLIC ACID TABLET (FP) PO SCH (10:32)
--- NOTE | 2018-08-12 13:54 | PN ---
[facility] CIWA - CIWA Score Nausea/Vomitin-No Nausea/No Vomiting Muscle Tremors: 1-None Visible, but [place] Anxiety: 1-Mildly Anxious Agitation: 1-Slight > Activity Paroxysmal Sweats: 1-Minimal Palms Moist Orientation: 1-Uncertain about Date Tacttile Disturbances: 0-None Auditory Disturbances: 1-Very Mild Visual Disturbances: 0-None Headache: 1-Very Mild CIWA-Ar Total Score: 7 S COWS - Scale Resting Pulse: 0= MN 80 or Below Sweatin= Chills/Flushing Restless Observation: 0= Sits Still Pupil Size: 0= Normal to Room Light Bone or Joint Aches: 1= Mild Discomfort Runny Nose/ Eye Tearin= Nasal Congestion GI Upset > 30mins: 1= Stomach Cramp Tremor Observation of Outstretched Hands: 1= Tremor [place], Not Seen Yawning Observation: 0= None Anxiety or Irritability: 0= None Goose Flesh Skin: 0=Smooth Skin COWS Score: 5 S Progress Note (SOAP) Subjective: fatigue, eating lunch with eyes closed, verbally responding the questions with short answers mild body aches with felt tremor Objective: 08/12/18 13:58 Vital Signs Temperature 98.4 F 08/12/18 13:55 Pulse Rate 73 08/12/18 13:55 Respiratory Rate 18 08/12/18 13:55 Blood Pressure 147/72 08/12/18 13:55 O2 Sat by Pulse Oximetry (%) Laboratory Last Values WBC 4.6 K/mm3 (4.0-10.0) 08/11/18 07:50 RBC 4.75 M/mm3 (4.00-5.60) 08/11/18 07:50 Hgb 12.3 GM/dL (11.7-16.9) 08/11/18 07:50 Hct 38.8 % (35.4-49) 08/11/18 07:50 MCV 81.7 fl (80-96) 08/11/18 07:50 MCH 26.0 pg (25.7-33.7) 08/11/18 07:50 MCHC 31.8 g/dl (32.0-35.9) L 08/11/18 07:50 RDW 14.5 % (11.9-15.9) 08/11/18 07:50 Plt Count 250 K/MM3 (134-434) 08/11/18 07:50 MPV 9.3 fl (7.5-11.1) 08/11/18 07:50 Sodium 140 mmol/L (136-145) 08/11/18 07:50 Potassium 3.4 mmol/L (3.5-5.1) L 08/11/18 07:50 Chloride 104 mmol/L (98-107) 08/11/18 07:50 Carbon Dioxide 27 mmol/L (21-32) 08/11/18 07:50 Anion Gap 8 MMOL/L (8-16) 08/11/18 07:50 BUN 11 mg/dL (7-18) 08/11/18 07:50 Creatinine 1.0 mg/dL (0.55-1.3) 08/11/18 07:50 Creat Clearance w eGFR > 60 (>60) 08/11/18 07:50 Random Glucose 103 mg/dL (74-106) 08/11/18 07:50 Calcium 8.3 mg/dL (8.5-10.1) L 08/11/18 07:50 Total Bilirubin 0.2 mg/dL (0.2-1) 08/11/18 07:50 AST 19 U/L (15-37) 08/11/18 07:50 ALT 18 U/L (13-61) 08/11/18 07:50 Alkaline Phosphatase 61 U/L (45-117) 08/11/18 07:50 Total Protein 6.9 g/dl (6.4-8.2) 08/11/18 07:50 Albumin 3.1 g/dl (3.4-5.0) L 08/11/18 07:50 Urine Color Ltyellow 08/10/18 23:00 Urine Appearance Cloudy 08/10/18 23:00 Urine pH 7.0 (5.0-8.0) D 08/10/18 23:00 Ur Specific [place] 1.012 (1.010-1.035) 08/10/18 23:00 Urine Protein Negative (NEGATIVE) 08/10/18 23:00 Urine Glucose (UA) Negative (NEGATIVE) 08/10/18 23:00 Urine Ketones Negative (NEGATIVE) 08/10/18 23:00 Urine Blood Negative (NEGATIVE) 08/10/18 23:00 Urine Nitrite Negative (NEGATIVE) 08/10/18 23:00 Urine Bilirubin Negative (<2.0 mg/dL) 08/10/18 23:00 Urine Urobilinogen Negative mg/dL (0.2-1.0) 08/10/18 23:00 Ur Leukocyte Esterase Negative (NEGATIVE) 08/10/18 23:00 RPR Titer Nonreactive (NONREACTIVE) 08/11/18 07:50 repeat K+ ammonia level lab noted Assessment: 08/12/18 13:59 withdrawal sx hypertension Plan: continue detox amilodopine lisinopril
[2018-08-12] MEDS ORDERED: PATIENT'S OWN MEDICATION (NON-FORMULARY) (Lisinopril [Prinivil -] 40 MG) PO SCH (14:00)
[2018-08-12] MEDS ORDERED: chlordiazePOXIDE 5 MG CAPSULE PO SCH (17:00)
[2018-08-12 20:58] VITALS: BP 152/95; PULSE 71; TEMP 99
--- NOTE | 2018-08-12 21:20 | PN ---
[facility] Progress Note Note: CLIENT SEEN FOR AMA. HE REPORTS HE WANTS TO LEAVE ( PACING INFRONT OF THE NURSES STATION). "I DONT FEEL WELL, I NEED A CIGARETTE AND I DONT WANT TO BE HERE". CLIENT RELUCTANT TO SHARE/ DISCUSS SX'S OF NOT FEELING WELL. HE IS ADAMANT ABOUT SIGNING OUT. HE WAS INFORMED CLIENT ABOUT THE RISK OF ABRUPTING TXMENT. HE ALSO WAS ALSO INFOMRED ABOUT HIS HYPOKALEMIA STATUS AN ELEVATED B/P AND RISK ASSOCIATED IF NOT CORRECTED TO INCLUDE SIEZURES, ARRYTHMIA AND . CLIENT VERBALIZED UNDERSTANDING. HE WAS ALSO INSTRUCTED TO CALL 911 OR REPORTS TO THE NEAREST ER SHOULD HE EXPERIENCE WORSENING WITHDRAWAL S'S. C.P, SOB, BLEEDING. HE IS A/O X3 NAD, ABLE TO MAKE INFORMED DECISIONS. Vital Signs Temperature 99.0 F 08/12/18 20:00 Pulse Rate 71 08/12/18 20:00 Respiratory Rate 16 08/12/18 20:00 Blood Pressure 152/95 08/12/18 20:00 O2 Sat by Pulse Oximetry (%) Laboratory Last Values WBC 4.6 K/mm3 (4.0-10.0) 08/11/18 07:50 RBC 4.75 M/mm3 (4.00-5.60) 08/11/18 07:50 Hgb 12.3 GM/dL (11.7-16.9) 08/11/18 07:50 Hct 38.8 % (35.4-49) 08/11/18 07:50 MCV 81.7 fl (80-96) 08/11/18 07:50 MCH 26.0 pg (25.7-33.7) 08/11/18 07:50 MCHC 31.8 g/dl (32.0-35.9) L 08/11/18 07:50 RDW 14.5 % (11.9-15.9) 08/11/18 07:50 Plt Count 250 K/MM3 (134-434) 08/11/18 07:50 MPV 9.3 fl (7.5-11.1) 08/11/18 07:50 Sodium 140 mmol/L (136-145) 08/11/18 07:50 Potassium 3.4 mmol/L (3.5-5.1) L 08/11/18 07:50 Chloride 104 mmol/L (98-107) 08/11/18 07:50 Carbon Dioxide 27 mmol/L (21-32) 08/11/18 07:50 Anion Gap 8 MMOL/L (8-16) 08/11/18 07:50 BUN 11 mg/dL (7-18) 08/11/18 07:50 Creatinine 1.0 mg/dL (0.55-1.3) 08/11/18 07:50 Creat Clearance w eGFR > 60 (>60) 08/11/18 07:50 Random Glucose 103 mg/dL (74-106) 08/11/18 07:50 Calcium 8.3 mg/dL (8.5-10.1) L 08/11/18 07:50 Total Bilirubin 0.2 mg/dL (0.2-1) 08/11/18 07:50 AST 19 U/L (15-37) 08/11/18 07:50 ALT 18 U/L (13-61) 08/11/18 07:50 Alkaline Phosphatase 61 U/L (45-117) 08/11/18 07:50 Total Protein 6.9 g/dl (6.4-8.2) 08/11/18 07:50 Albumin 3.1 g/dl (3.4-5.0) L 08/11/18 07:50 Urine Color Ltyellow 08/10/18 23:00 Urine Appearance Cloudy 08/10/18 23:00 Urine pH 7.0 (5.0-8.0) D 08/10/18 23:00 Ur Specific [place] 1.012 (1.010-1.035) 08/10/18 23:00 Urine Protein Negative (NEGATIVE) 08/10/18 23:00 Urine Glucose (UA) Negative (NEGATIVE) 08/10/18 23:00 Urine Ketones Negative (NEGATIVE) 08/10/18 23:00 Urine Blood Negative (NEGATIVE) 08/10/18 23:00 Urine Nitrite Negative (NEGATIVE) 08/10/18 23:00 Urine Bilirubin Negative (<2.0 mg/dL) 08/10/18 23:00 Urine Urobilinogen Negative mg/dL (0.2-1.0) 08/10/18 23:00 Ur Leukocyte Esterase Negative (NEGATIVE) 08/10/18 23:00 RPR Titer Nonreactive (NONREACTIVE) 08/11/18 07:50 LABS NOTED
--- NOTE | 2018-08-12 21:29 | DS ---
[facility] Detox Discharge Summary Admission Date: 08/10/18 Discharge Date: 08/12/18 - History Present History: Alcohol Dependence, Opioid Dependence Pertinent Past History: nicotine dep htn - Physical Exam Results Vital Signs: Vital Signs Temperature 99.0 F 08/12/18 20:00 Pulse Rate 71 08/12/18 20:00 Respiratory Rate 16 08/12/18 20:00 Blood Pressure 152/95 08/12/18 20:00 O2 Sat by Pulse Oximetry (%) Pertinent Admission Physical Exam Findings: WITHDRAWAL SX'S Laboratory Tests 08/10/18 08/11/18 08/11/18 23:00 07:50 07:50 WBC 4.6 RBC 4.75 Hgb 12.3 Hct 38.8 MCV 81.7 MCH 26.0 MCHC 31.8 L RDW 14.5 Plt Count 250 MPV 9.3 Sodium 140 Potassium 3.4 L Chloride 104 Carbon Dioxide 27 Anion Gap 8 BUN 11 Creatinine 1.0 Creat Clearance w eGFR > 60 Random Glucose 103 Calcium 8.3 L Total Bilirubin 0.2 AST 19 ALT 18 Alkaline Phosphatase 61 Total Protein 6.9 Albumin 3.1 L Urine Color Ltyellow Urine Appearance Cloudy Urine pH 7.0 D Ur Specific [employer] 1.012 Urine Protein Negative Urine Glucose (UA) Negative Urine Ketones Negative Urine Blood Negative Urine Nitrite Negative Urine Bilirubin Negative Urine Urobilinogen Negative Ur Leukocyte Esterase Negative RPR Titer 08/11/18 07:50 WBC RBC Hgb Hct MCV MCH MCHC RDW Plt Count MPV Sodium Potassium Chloride Carbon Dioxide Anion Gap BUN Creatinine Creat Clearance w eGFR Random Glucose Calcium Total Bilirubin AST ALT Alkaline Phosphatase Total Protein Albumin Urine Color Urine Appearance Urine pH Ur Specific [employer] Urine Protein Urine Glucose (UA) Urine Ketones Urine Blood Urine Nitrite Urine Bilirubin Urine Urobilinogen Ur Leukocyte Esterase RPR Titer Nonreactive - Treatment Hospital Course: Discharged Condition Good - Medication Discharge Medications: Ambulatory Orders Esomeprazole Mag Trihydrate [Nexium] 40 mg PO DAILY #30 capsule.ec 07/15/14 Doxazosin Mesylate [Cardura -] 1 mg PO HS #30 tablet 12/06/17 Aripiprazole [Abilify] 5 mg PO DAILY #30 tablet 01/01/18 Lisinopril [Prinivil -] 40 mg PO DAILY 08/10/18 Mirtazapine [Remeron -] 30 mg PO HS 08/10/18 Amlodipine Besylate [Norvasc -] 10 mg PO DAILY 08/12/18 - Diagnosis (1) Alcohol dependence with uncomplicated withdrawal Current Visit: Yes Status: Acute (2) Drug-induced mood disorder Current Visit: Yes Status: Acute (3) Non-compliant patient Current Visit: Yes Status: Acute (4) Opioid dependence with withdrawal Current Visit: Yes Status: Acute (5) HTN (hypertension) Current Visit: Yes Status: Chronic Qualifiers: Hypertension type: essential hypertension Qualified Code(s): I10 - Essential (primary) hypertension (6) Nicotine dependence Current Visit: Yes Status: Chronic Qualifiers: Nicotine product type: cigarettes Substance use status: uncomplicated Qualified Code(s): F17.210 - Nicotine dependence, cigarettes, uncomplicated - AMA Did Patient Leave Against Medical Advice: Yes (STATES HAS HOME MEDS. DOES NOT NEED RX)
[2018-08-13] MEDS ORDERED: METHADONE HCL 5 MG TABLET (FOR DETOX USE ONLY) PO SCH (06:00)
[2018-08-13] MEDS ORDERED: LISINOPRIL 20 MG TABLET (FP) PO SCH (10:00)
[2018-08-13] MEDS ORDERED: chlordiazePOXIDE HCL 10 MG CAPSULE PO SCH (17:00)
== END 2018-08-12 20:39 | disposition left against medical advice (07) | DRG 770 ==
LOC: YASAS 12:52 → Y6N 15:07
PROC: HZ2ZZZZ Detoxification Services for Substance Abuse Treatment (ICD-10-PCS; principal; 2018-08-10)
DX: F11.23 Opioid dependence with withdrawal (principal); F10.230 Alcohol dependence with withdrawal, uncomplicated; F14.20 Cocaine dependence, uncomplicated; F12.20 Cannabis dependence, uncomplicated; F17.210 Nicotine dependence, cigarettes, uncomplicated; F25.9 Schizoaffective disorder, unspecified; F19.24 Other psychoactive substance dependence with psychoactive substance-induced mood disorder; I10 Essential (primary) hypertension; E87.6 Hypokalemia; G47.00 Insomnia, unspecified; K21.9 Gastro-esophageal reflux disease without esophagitis; I49.9 Cardiac arrhythmia, unspecified; Z91.5 Personal history of self-harm; Z91.19 Patient's noncompliance with other medical treatment and regimen
CPT/HCPCS: 36415; 80053; 81003; 85027; 86593; 93005; 93010; J0735